=== PATIENT | female | born 1955 | race Caucasian/White ===

== ENCOUNTER → 2023-05-27 07:13 | Outpatient (REF) | payer MEDICARE, OTHER, SELFPAY ==
[2023-05-27 08:34] LABS: Microalbumin, Random Urine < 0.6 mg/dl (0.6-1.7)
[2023-05-27 09:13] LABS: TSH Reflex To Free T4 2.55 uIU/ml (0.47-4.68)
[2023-05-27 09:23] LABS: ALT (SGPT) 25 U/L (0-35); AST (SGOT) 24 U/L (14-36); Albumin 4.3 g/dl (3.5-5.0); Alkaline Phosphatase 54 U/L (38-126); Blood Urea Nitrogen 20 mg/dl (7-17); Calcium 9.7 mg/dl (8.4-10.2); Carbon Dioxide 25 mmol/L (22-30); Chloride 106 mmol/L (98-107); Glucose 110 mg/dl (70-99); HDL Cholesterol 47 mg/dl; LDL Cholesterol, Calculated 89 mg/dl; Potassium 4.2 mmol/L (3.5-5.1); Sodium 136 mmol/L (135-145); Total Bilirubin 0.5 mg/dl (0.2-1.3); Total Cholesterol 187 mg/dl (50-199); Total Protein 7.1 g/dl (6.3-8.2); Triglyceride 257 mg/dl (10-149); Very Low Density Lipoprotein 51 mg/dl (0-30); eGFR > 60.00
[2023-05-27 09:58] LABS: Glycohemoglobin (HgbA1c) 6.3 % (4.0-5.6)
== END ==
LOC: REG 07:13
PROVIDERS: ATTENDING PHYSICIAN Internal Medicine
DX: E03.9 Hypothyroidism, unspecified (principal); E11.9 Type 2 diabetes mellitus without complications
CPT/HCPCS: 36415; 80053; 80061; 82043; 83036; 84443

== ENCOUNTER → 2023-08-31 06:39 | Outpatient (REF) | payer MEDICARE, OTHER, SELFPAY ==
[2023-08-31 07:47] LABS: ALT (SGPT) 15 U/L (0-35); AST (SGOT) 18 U/L (14-36); Albumin 4.1 g/dl (3.5-5.0); Alkaline Phosphatase 53 U/L (38-126); Blood Urea Nitrogen 17 mg/dl (7-17); Calcium 9.9 mg/dl (8.4-10.2); Carbon Dioxide 27 mmol/L (22-30); Chloride 105 mmol/L (98-107); Glucose 92 mg/dl (70-99); HDL Cholesterol 43 mg/dl; LDL Cholesterol, Calculated 64 mg/dl; Potassium 4.6 mmol/L (3.5-5.1); Sodium 141 mmol/L (135-145); Total Bilirubin 0.4 mg/dl (0.2-1.3); Total Cholesterol 147 mg/dl (50-199); Total Protein 6.9 g/dl (6.3-8.2); Triglyceride 201 mg/dl (10-149); Very Low Density Lipoprotein 40 mg/dl (0-30); eGFR > 60.00
[2023-08-31 08:02] LABS: % Basophils 1.4 % (0-2); % Eosinophils 3.7 % (0-6); % Immature Granulocytes 0.4 % (0-0.5); % Monocytes 7.1 % (1.7-9.3); % Neutrophils 57.4 % (42.2-75.2); Absolute Basophils 0.1 10^3/uL (0-0.2); Absolute Eosinophils 0.2 10^3/uL (0-0.7); Absolute Lymphocytes 1.7 10^3/uL (1.2-3.4); Absolute Monocytes 0.4 10^3/uL (0.1-0.6); Absolute Neutrophils 3.2 10^3/uL (1.4-6.5); Hematocrit 37.4 % (37.0-47.0); Hemoglobin 12.6 g/dL (12.0-16.0); Mean Corp Hgb Conc. 33.7 g/dL (33.0-37.0); Mean Corpuscular Hgb 29.6 pg (27.0-31.0); Mean Platelet Volume 9.6 fL (7.4-10.4); Nucleated Red Blood Cells % 0 %; Platelet Count 324 10^3/uL (130-400); Red Blood Cell Count 4.25 10^6/uL (4.20-5.40); Red Cell Dist. Width 12.7 % (11.5-14.5); White Blood Cell Count 5.6 10^3/uL (4.8-10.8)
[2023-08-31 08:16] LABS: TSH Reflex To Free T4 0.58 uIU/ml (0.47-4.68)
[2023-08-31 10:24] LABS: Glycohemoglobin (HgbA1c) 5.9 % (4.0-5.6)
== END ==
LOC: REG 06:39
PROVIDERS: ATTENDING PHYSICIAN Internal Medicine Hematology & Oncology; FAMILY PHYSICIAN Internal Medicine
DX: C50.512 Malignant neoplasm of lower-outer quadrant of left female breast (principal); E55.9 Vitamin D deficiency, unspecified; E11.9 Type 2 diabetes mellitus without complications; E03.9 Hypothyroidism, unspecified; E78.2 Mixed hyperlipidemia
CPT/HCPCS: 36415; 80053; 80061; 83036; 84443; 85025

== ENCOUNTER 2023-10-23 18:26 | Emergency (ER) | payer MEDICARE, OTHER, SELFPAY ==
[2023-10-23 18:32] VITALS: BP 167/96
[2023-10-23 18:51] LABS: % Basophils 0.4 % (0-2); % Eosinophils 1.6 % (0-6); % Immature Granulocytes 0.4 % (0-0.5); % Lymphocytes 11.1 % (20.5-51.1); % Monocytes 6.6 % (1.7-9.3); % Neutrophils 79.9 % (42.2-75.2); Absolute Basophils 0.1 10^3/uL (0-0.2); Absolute Eosinophils 0.2 10^3/uL (0-0.7); Absolute Immature Granulocytes 0.1 10^3/uL (0-0.05); Absolute Lymphocytes 1.6 10^3/uL (1.2-3.4); Absolute Neutrophils 11.5 10^3/uL (1.4-6.5); Hematocrit 40.2 % (37.0-47.0); Hemoglobin 13.2 g/dL (12.0-16.0); Mean Corp Hgb Conc. 32.8 g/dL (33.0-37.0); Mean Corpuscular Hgb 29.1 pg (27.0-31.0); Mean Corpuscular Volume 88.5 fL (81.0-99.0); Mean Platelet Volume 8.4 fL (7.4-10.4); Nucleated Red Blood Cells % 0 %; Platelet Count 450 10^3/uL (130-400); Red Blood Cell Count 4.54 10^6/uL (4.20-5.40); Red Cell Dist. Width 12.9 % (11.5-14.5); Urine Albumin Negative (Neg - Trace); Urine Bilirubin Negative (Negative); Urine Character Clear (Clear); Urine Color Yellow; Urine Glucose Negative (Negative); Urine Ketone Negative (Negative); Urine Leukocyte Negative (Negative); Urine Nitrite Negative (Negative); Urine Occult Blood Negative (Negative); Urine Urobilinogen Negative (Neg - 1+); White Blood Cell Count 14.4 10^3/uL (4.8-10.8)
[2023-10-23 19:04] LABS: ALT (SGPT) 25 U/L (0-35); AST (SGOT) 24 U/L (14-36); Albumin 4.4 g/dl (3.5-5.0); Alkaline Phosphatase 69 U/L (38-126); Blood Urea Nitrogen 10 mg/dl (7-17); Carbon Dioxide 28 mmol/L (22-30); Chloride 98 mmol/L (98-107); Glucose 119 mg/dl (70-99); Lipase 54 U/L (23-300); Sodium 140 mmol/L (135-145); Total Bilirubin 0.5 mg/dl (0.2-1.3); Total Protein 7.7 g/dl (6.3-8.2); eGFR > 60.00
--- NOTE | 2023-10-23 19:31 | ED.GENMED ---
History of Present Illness
General
Chief Complaint: Abdominal Symptoms
Source: patient and spouse
Exam Limitations: none
Time Seen by Provider: 10/23/23 19:16
Nursing documentation reviewed up to this point in time: agreed with
History of Present Illness
History of Present Illness:
67-year-old female with a past medical history of breast cancer in remission, hyperlipidemia, GERD, diabetes, hypothyroidism who presents to the emergency room for evaluation of abdominal pain. Patient reports onset of symptoms last night and have
been constant since that time. She reports pain in the left lower quadrant nonradiating. Worse with palpation. She reports associated flatulence and mild constipation although she did have a bowel movement earlier today. No diarrhea. She has
had nausea and had an episode of vomiting this morning she says. She notes that this afternoon she had a fever to 100.5 �F. Discussed symptoms with her primary who recommended she come to the emergency room to be evaluated. She denies any
dysuria, hematuria, change in frequency. She denies any chest pain or shortness of breath. She denies any other complaints. She says she has not had similar symptoms in the past. She does have prior history of appendectomy and ovarian cyst
resection.
Review of Systems
Review of Systems
All Other Systems: ROS reviewed and negative except as documented in HPI and ROS
Constitutional: Reports fever and chills
Respiratory: Denies trouble breathing
Cardiac: Denies chest pain
ABD/GI: Reports abdominal pain, nausea, vomiting and constipated; Denies diarrhea
: Denies dysuria, frequency or flank pain
Musculoskeletal: Denies neck pain or back pain
Phy Exam
Physical Exam
Physical Exam:
General: Awake, alert; no acute distress
Head: Normocephalic, atraumatic
Eyes: Conjunctiva normal, sclera anicteric
Throat: Airway intact, mucous membranes slightly dry
Neck: Trachea midline
Lungs: Breathing comfortably no distress, no evidence of accessory muscle use, no cyanosis, normal respiratory rate, normal pulse ox
Heart: Mild tachycardia
Abd: Soft, non distended, moderately tender left lower quadrant with voluntary guarding, no palpable masses
Back: No CVA tenderness
Neuro: No gross deficits
Extremities: Warm and well-perfused
Scores
Heart Failure Risk
Heart Failure Risk Score: Not Applicable
Heart Score for Chest Pain Patients
STEMI patient?: Not applicable
Withdrawal Assessment of Alcohol
Withdrawal Assessment Completed?: Not applicable
Course
Orders/Labs/Results
Orders:
Orders
10/23/23 18:43
Complete Blood Count/With Diff Urgent
Comprehensive Metabolic Panel Urgent
Lipase Urgent
Urinalysis Reflex To Culture Urgent
Date Specimen was Collected: 10/23/23
Time Specimen was Collected: 18:35
10/23/23 19:17
CT Abd/pelvis W Iv Cont Urgent
Comment:
Reason For Exam: LLQ abd pain
10/23/23 19:27
Ketorolac [Toradol] 15 mg IV NOW STA
10/23/23 20:28
0.9% Sodium Chloride 500 ml [Nss] 500 ml IV BOLUS
10/23/23 21:56
MetroNIDAZOLE [Flagyl] 500 mg PO NOW STA
10/23/23 21:57
Ciprofloxacin HCl [Cipro] 500 mg PO ONCE ONE
Abnormal Lab Results
10/23/23
18:43
WBC 14.4 H 10^3/uL
(4.8-10.8)
MCHC 32.8 L g/dL
(33.0-37.0)
Plt Count 450 H 10^3/uL
(130-400)
Abs Immat Gran (auto) 0.1 H 10^3/uL
(0-0.05)
Absolute Neuts (auto) 11.5 H 10^3/uL
(1.4-6.5)
Absolute Monos (auto) 1.0 H 10^3/uL
(0.1-0.6)
Neutrophils % 79.9 H %
(42.2-75.2)
Lymphocytes % 11.1 L %
(20.5-51.1)
Glucose 119 H mg/dl
(70-99)
10/23/23 18:43
10/23/23 18:43
Vital Signs
Initial and Last Documented VS:
Initial Vital Signs
Temp Pulse Resp BP Pulse Ox
37.7 C 106 20 167/96 96
10/23/23 18:32 10/23/23 18:32 10/23/23 18:32 10/23/23 18:32 10/23/23 18:32
Last Documented Vital Signs
Temp Pulse Resp BP Pulse Ox
37.7 C 106 20 116/59 95
10/23/23 18:32 10/23/23 18:32 10/23/23 18:32 10/23/23 20:00 10/23/23 20:00
MDM/Problems Addressed
Differential Diagnosis Includes:
Diverticulitis, colitis, constipation
MDM/Problems Addressed:
67-year-old female presents for evaluation of abdominal pain, fever, nausea/vomiting, constipation and flatulence. Symptoms started last night and have been constant. Tachycardic, borderline fever here (had fever this afternoon and was treated
with Tylenol). Physical exam as above. Labs were sent in triage including a CBC which shows a leukocytosis to 14.4. Her CMP shows no clinically significant abnormalities. Urinalysis is negative for infection. Will send for a CT of the abdomen
pelvis. Provide some fluids. Treat with Toradol for pain. Will monitor closely reassess after the above.
Patient did note some improvement with Toradol. CT initially read by me does appear to show acute diverticulitis; also noted left pleural effusion. Radiology read pending. Continue to monitor.
CT reviewed�shows acute diverticulitis uncomplicated. She does have mild pleural effusion as well. Patient notes that she just got over a bout of COVID which certainly could be caused�recommended follow-up with PCP for further evaluation as
needed. Regarding her acute diverticulitis�her pain is well-controlled after dose of Toradol here. Heart rate improved, no fever here�no signs of sepsis at this point and likely reasonable for trial of outpatient antibiotics, nevertheless given
her age I did offer admission for short course of IV antibiotics prior to discharge home�patient prefers discharge on oral antibiotics. We did speak in detail about return precautions and follow-up plan. We spoke about bland diet and low fiber
diet during this acute bout. All questions answered.
Acute Exacerbation and/or Progression of Chronic Illness:
Acutely hypertensive resolved with no intervention�continue to monitor but no additional antihypertensive indicated at present
Acute Exacerbation and/or Progression of Chronic Illness: HTN
*Radiology
Radiology exam reviewed: radiology read reviewed
*Pulse Oximetry
Patient hypoxic: no
*Critical Care Note
Total Time (30-74mins, 75-104mins- exclusive of procedures): Not Applicable
Data Reviewed
Source: patient and spouse
Patient Management
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
Escalation/DeEscalation of care consider admission/obs:
Offered admission�shared decision making: discharge on oral antibiotics
ED Attending Note
-
Portions of this chart may have been created with voice recognition software.� Occasional wrong word or��sound alike� substitutions may have occurred due to the inherent limitations of voice recognition software.
Discharge Plan
Departure
Patient Disposition: Home (Routine Discharge)
Date of Disposition: 10/23/23
Time of Disposition: 21:57
Patient with high blood pressure during this ER visit?: Yes
Discharge Problem:
Acute diverticulitis, Pleural effusion
Instructions: Diverticulitis (DC), [place] Diet
Prescriptions:
New
ciprofloxacin HCl 500 mg tablet
500 mg PO BID 10 Days Qty: 20 0RF
metronidazole 500 mg tablet
500 mg PO TID 10 Days Qty: 30 0RF
No Action
levothyroxine 100 MCG tablet
100 mcg PO DAILY
metformin 500 MG tablet extended release 24 hr
500 mg PO .AM
Patient Comments:
will take 1000 mg am and 500 mg PM on chemo days to control glucose from Decadron effect.
biotin 1,000 MCG tablet,chewable
1,000 mcg PO DAILY
acetaminophen [Tylenol Extra Strength] 500 MG tablet
500 mg PO Q4HPRN PRN (Reason: pain)
L. qgtabftgz-L-wzzi cit-yeast [Culturelle Adv Immune Defense] 1 EACH capsule
1 cap PO DAILY
rosuvastatin 10 MG tablet
10 mg PO QPM
cholecalciferol (vitamin D3) 2,000 UNITS tablet
2,000 unit PO DAILY
Referrals:
Alba Garner MD [Family Provider] - Follow up in 2-3 days
Activity Restrictions/Additional Instructions:
Thank you for visiting the Emergency Department at [facility].
1. Please schedule a follow up appointment as directed. Call first thing tomorrow morning to make an appointment.
2. If indicated, please take your medications as instructed and indicated on discharge paperwork.
3. If any of your symptoms do not improve, or persist, or become more severe within 6-12 hours, please return to the emergency department for further care.
4. Please return to the emergency department if you develop a headache, neck pain/stiffness, fever greater than 100.4F, chest pain, shortness of breath, persistent nausea, vomiting, slurred speech, difficulty walking, numbness/tingling, weakness,
signs of infection or any other symptoms that are worrisome to you.
Please call [phone] if you have any questions.
Interventions
Interventions:
*Risk Screen - Suicide Last Done: 10/23/23 19:34
*General Assessment Last Done: 10/23/23 19:34
*Neglect/Abuse Screening Last Done: 10/23/23 19:34
*ED COVID-19 Vaccine History Last Done: 10/23/23 19:34
KB-Cosudd-Yutstqvloh Assessment Last Done: 10/23/23 19:42
Discharge Date and Time
Print Language: UZBEK
[2023-10-23 19:34] VITALS: BP 130/67
[2023-10-23] MEDS: TORADOL 15 MG IV (19:35)
[2023-10-23 20:00] VITALS: BP 116/59
[2023-10-23] MEDS: NSS 500 IV (20:42)
[2023-10-23] MEDS: FLAGYL 500 MG PO (22:09)
[2023-10-23] MEDS: CIPRO 500 MG PO (22:09)
== END 2023-10-23 22:22 | disposition home or self-care (01) ==
LOC: EMR 18:26
PROVIDERS: Emergency Medicine; EMERGENCY PHYSICIAN Emergency Medicine; FAMILY PHYSICIAN Internal Medicine
DX: J90 Pleural effusion, not elsewhere classified (principal); K57.32 Diverticulitis of large intestine without perforation or abscess without bleeding; R03.0 Elevated blood-pressure reading, without diagnosis of hypertension
CPT/HCPCS: 99285; 96374; 96361; 74177; 80053; 81003; 83690; 85025; Q9967

== ENCOUNTER → 2023-12-22 07:17 | Outpatient (REF) | payer MEDICARE, OTHER, SELFPAY ==
[2023-12-22 08:50] LABS: ALT (SGPT) 23 U/L (0-35); AST (SGOT) 23 U/L (14-36); Albumin 4.2 g/dl (3.5-5.0); Alkaline Phosphatase 45 U/L (38-126); Blood Urea Nitrogen 16 mg/dl (7-17); Calcium 10.1 mg/dl (8.4-10.2); Carbon Dioxide 27 mmol/L (22-30); Chloride 102 mmol/L (98-107); Glucose 95 mg/dl (70-99); HDL Cholesterol 61 mg/dl; LDL Cholesterol, Calculated 89 mg/dl; Potassium 4.5 mmol/L (3.5-5.1); Sodium 141 mmol/L (135-145); Total Bilirubin 0.2 mg/dl (0.2-1.3); Total Cholesterol 193 mg/dl (50-199); Total Protein 7.2 g/dl (6.3-8.2); Triglyceride 215 mg/dl (10-149); Very Low Density Lipoprotein 43 mg/dl (0-30); eGFR > 60.00
[2023-12-22 10:19] LABS: Glycohemoglobin (HgbA1c) 5.8 % (4.0-5.6)
== END ==
LOC: WDC 07:17
PROVIDERS: ATTENDING PHYSICIAN Internal Medicine
DX: E11.9 Type 2 diabetes mellitus without complications (principal); E78.2 Mixed hyperlipidemia; E03.9 Hypothyroidism, unspecified; G47.33 Obstructive sleep apnea (adult) (pediatric); Z85.3 Personal history of malignant neoplasm of breast; Z12.31 Encounter for screening mammogram for malignant neoplasm of breast
CPT/HCPCS: 36415; 77063; 77067; 80053; 80061; 83036

== ENCOUNTER → 2024-04-05 07:10 | Outpatient (REF) | payer MEDICARE, OTHER, SELFPAY ==
[2024-04-05 08:10] LABS: % Basophils 1.7 % (0-2); % Eosinophils 7.2 % (0-6); % Immature Granulocytes 0.9 % (0-0.5); % Lymphocytes 28.6 % (20.5-51.1); % Monocytes 7.2 % (1.7-9.3); % Neutrophils 54.4 % (42.2-75.2); Absolute Basophils 0.1 10^3/uL (0-0.2); Absolute Eosinophils 0.4 10^3/uL (0-0.7); Absolute Immature Granulocytes 0.1 10^3/uL (0-0.05); Absolute Lymphocytes 1.7 10^3/uL (1.2-3.4); Absolute Monocytes 0.4 10^3/uL (0.1-0.6); Absolute Neutrophils 3.2 10^3/uL (1.4-6.5); Hematocrit 41.7 % (37.0-47.0); Hemoglobin 13.6 g/dL (12.0-16.0); Mean Corp Hgb Conc. 32.6 g/dL (33.0-37.0); Mean Corpuscular Hgb 29.2 pg (27.0-31.0); Mean Corpuscular Volume 89.7 fL (81.0-99.0); Mean Platelet Volume 9.1 fL (7.4-10.4); Nucleated Red Blood Cells % 0 %; Platelet Count 341 10^3/uL (130-400); Red Blood Cell Count 4.65 10^6/uL (4.20-5.40); Red Cell Dist. Width 13.6 % (11.5-14.5); White Blood Cell Count 5.8 10^3/uL (4.8-10.8)
[2024-04-05 08:29] LABS: ALT (SGPT) 27 U/L (0-35); AST (SGOT) 23 U/L (14-36); Albumin 4.6 g/dl (3.5-5.0); Alkaline Phosphatase 52 U/L (38-126); Blood Urea Nitrogen 15 mg/dl (7-17); Calcium 9.5 mg/dl (8.4-10.2); Carbon Dioxide 28 mmol/L (22-30); Chloride 103 mmol/L (98-107); Glucose 92 mg/dl (70-99); HDL Cholesterol 62 mg/dl; LDL Cholesterol, Calculated 94 mg/dl; Potassium 4.5 mmol/L (3.5-5.1); Sodium 140 mmol/L (135-145); Total Bilirubin 0.8 mg/dl (0.2-1.3); Total Cholesterol 191 mg/dl (50-199); Total Protein 7.3 g/dl (6.3-8.2); Triglyceride 177 mg/dl (10-149); Very Low Density Lipoprotein 35 mg/dl (0-30); eGFR > 60.00
[2024-04-05 10:42] LABS: TSH Reflex To Free T4 3.25 uIU/ml (0.47-4.68)
[2024-04-05 11:16] LABS: Glycohemoglobin (HgbA1c) 5.9 % (4.0-5.6)
== END ==
LOC: REG 07:10
PROVIDERS: ATTENDING PHYSICIAN Internal Medicine
DX: E11.9 Type 2 diabetes mellitus without complications (principal); E03.9 Hypothyroidism, unspecified; E78.2 Mixed hyperlipidemia
CPT/HCPCS: 36415; 80053; 80061; 83036; 84443; 85025

== ENCOUNTER 2024-05-03 06:16 | Day surgery (SDC) | payer MEDICARE, OTHER, SELFPAY ==
[2024-05-03 07:34] LABS: Glucose - Point of Care 83 mg/dl (70-99)
== END 2024-05-03 09:23 | disposition home or self-care (01) ==
LOC: GI 06:16
PROVIDERS: ATTENDING PHYSICIAN Internal Medicine Gastroenterology
DX: Z12.11 Encounter for screening for malignant neoplasm of colon (principal); K57.30 Diverticulosis of large intestine without perforation or abscess without bleeding; K64.8 Other hemorrhoids; K57.32 Diverticulitis of large intestine without perforation or abscess without bleeding; D12.2 Benign neoplasm of ascending colon; C20 Malignant neoplasm of rectum
CPT/HCPCS: 45385; 45380; 88305; 82962; 88341; 88342

== ENCOUNTER → 2024-05-16 17:28 | Outpatient (REF) | payer MEDICARE, OTHER, SELFPAY | LOC: MRI 3T 17:28 | PROVIDERS: ATTENDING PHYSICIAN Surgery; FAMILY PHYSICIAN Internal Medicine | DX: C21.1 Malignant neoplasm of anal canal (principal) | CPT/HCPCS: 72197; A9575 ==

== ENCOUNTER → 2024-05-17 08:21 | Outpatient (REF) | payer MEDICARE, OTHER, SELFPAY | LOC: RAD 08:21 | PROVIDERS: ATTENDING PHYSICIAN Surgery; FAMILY PHYSICIAN Internal Medicine | DX: C21.1 Malignant neoplasm of anal canal (principal) | CPT/HCPCS: 71260; 74160; Q9967 ==

== ENCOUNTER → 2024-05-29 06:46 | Outpatient (REF) | payer MEDICARE, OTHER, SELFPAY | LOC: RSP 06:46 | PROVIDERS: ATTENDING PHYSICIAN Internal Medicine Hematology & Oncology; FAMILY PHYSICIAN Internal Medicine | DX: C21.0 Malignant neoplasm of anus, unspecified (principal); R06.02 Shortness of breath | CPT/HCPCS: 94727; 94729; 94010 ==

== ENCOUNTER → 2024-06-04 13:43 | Outpatient (REF) | payer MEDICARE, OTHER, SELFPAY ==
[2024-06-04 14:57] LABS: % Basophils 1.5 % (0-2); % Eosinophils 4.7 % (0-6); % Immature Granulocytes 0.6 % (0-0.5); % Lymphocytes 26.2 % (20.5-51.1); % Monocytes 6.3 % (1.7-9.3); % Neutrophils 60.7 % (42.2-75.2); Absolute Basophils 0.1 10^3/uL (0-0.2); Absolute Eosinophils 0.4 10^3/uL (0-0.7); Absolute Immature Granulocytes 0.1 10^3/uL (0-0.05); Absolute Lymphocytes 2.2 10^3/uL (1.2-3.4); Absolute Monocytes 0.5 10^3/uL (0.1-0.6); Hematocrit 41.6 % (37.0-47.0); Hemoglobin 13.8 g/dL (12.0-16.0); Mean Corp Hgb Conc. 33.2 g/dL (33.0-37.0); Mean Corpuscular Hgb 30.1 pg (27.0-31.0); Mean Corpuscular Volume 90.8 fL (81.0-99.0); Mean Platelet Volume 9.7 fL (7.4-10.4); Nucleated Red Blood Cells % 0 %; Platelet Count 327 10^3/uL (130-400); Red Blood Cell Count 4.58 10^6/uL (4.20-5.40); White Blood Cell Count 8.2 10^3/uL (4.8-10.8)
[2024-06-04 15:19] LABS: ALT (SGPT) 24 U/L (0-35); AST (SGOT) 22 U/L (14-36); Albumin 4.6 g/dl (3.5-5.0); Alkaline Phosphatase 72 U/L (38-126); Blood Urea Nitrogen 16 mg/dl (7-17); Calcium 10.3 mg/dl (8.4-10.2); Carbon Dioxide 28 mmol/L (22-30); Chloride 104 mmol/L (98-107); Glucose 125 mg/dl (70-99); Potassium 4.3 mmol/L (3.5-5.1); Sodium 142 mmol/L (135-145); Total Bilirubin 0.5 mg/dl (0.2-1.3); Total Protein 7.3 g/dl (6.3-8.2); eGFR > 60.00
== END ==
LOC: REG 13:43
PROVIDERS: ATTENDING PHYSICIAN Internal Medicine Hematology & Oncology
DX: C50.512 Malignant neoplasm of lower-outer quadrant of left female breast (principal); E55.9 Vitamin D deficiency, unspecified; C21.0 Malignant neoplasm of anus, unspecified
CPT/HCPCS: 36415; 80053; 85025

== ENCOUNTER → 2024-06-05 10:15 | Outpatient (REF) | payer MEDICARE, OTHER, SELFPAY | LOC: RCS 10:15 | PROVIDERS: ATTENDING PHYSICIAN Internal Medicine Cardiovascular Disease; FAMILY PHYSICIAN Internal Medicine | DX: R01.1 Cardiac murmur, unspecified (principal); Z01.810 Encounter for preprocedural cardiovascular examination | CPT/HCPCS: 93306 ==

== ENCOUNTER → 2024-06-08 08:15 | Outpatient (REF) | payer MEDICARE, OTHER, SELFPAY ==
[2024-06-08 09:05] VITALS: BP 134/65; BP_SYST 75; BMI 32.0
[2024-06-08] MEDS: ANCEF 10 IV (09:26)
[2024-06-08 10:46] VITALS: BP 137/63
== END ==
LOC: RADI 08:15
PROVIDERS: ATTENDING PHYSICIAN Internal Medicine Hematology & Oncology; FAMILY PHYSICIAN Internal Medicine
DX: C21.0 Malignant neoplasm of anus, unspecified (principal)
CPT/HCPCS: 36561; 76937; 77001; 99152; 99153; C1788

== ENCOUNTER → 2024-06-19 09:44 | Outpatient (REF) | payer MEDICARE, OTHER, SELFPAY ==
[2024-06-19 11:05] LABS: % Basophils 1.1 % (0-2); % Monocytes 1.1 % (1.7-9.3); % Neutrophils 67.8 % (42.2-75.2); Absolute Eosinophils 0.1 10^3/uL (0-0.7); Absolute Immature Granulocytes 0.1 10^3/uL (0-0.05); Absolute Lymphocytes 0.7 10^3/uL (1.2-3.4); Absolute Neutrophils 1.8 10^3/uL (1.4-6.5); Hemoglobin 12.4 g/dL (12.0-16.0); Mean Corp Hgb Conc. 33.5 g/dL (33.0-37.0); Mean Corpuscular Volume 89.6 fL (81.0-99.0); Mean Platelet Volume 9.3 fL (7.4-10.4); Nucleated Red Blood Cells % 0 %; Platelet Count 193 10^3/uL (130-400); Red Blood Cell Count 4.13 10^6/uL (4.20-5.40); Red Cell Dist. Width 12.3 % (11.5-14.5); White Blood Cell Count 2.7 10^3/uL (4.8-10.8)
[2024-06-19 11:36] LABS: ALT (SGPT) 14 U/L (0-35); AST (SGOT) 16 U/L (14-36); Albumin 4.3 g/dl (3.5-5.0); Alkaline Phosphatase 50 U/L (38-126); Blood Urea Nitrogen 12 mg/dl (7-17); Calcium 9.1 mg/dl (8.4-10.2); Carbon Dioxide 27 mmol/L (22-30); Chloride 103 mmol/L (98-107); Glucose 92 mg/dl (70-99); Sodium 141 mmol/L (135-145); Total Bilirubin 0.5 mg/dl (0.2-1.3); eGFR > 60.00
== END ==
LOC: REG 09:44
PROVIDERS: ATTENDING PHYSICIAN Internal Medicine Hematology & Oncology; FAMILY PHYSICIAN Internal Medicine
DX: C50.512 Malignant neoplasm of lower-outer quadrant of left female breast (principal); E55.9 Vitamin D deficiency, unspecified; C21.0 Malignant neoplasm of anus, unspecified
CPT/HCPCS: 36415; 80053; 85025

== ENCOUNTER → 2024-06-25 13:05 | Outpatient (REF) | payer MEDICARE, OTHER, SELFPAY ==
[2024-06-25 15:39] LABS: % Basophils 1.1 % (0-2); % Eosinophils 5.3 % (0-6); % Lymphocytes 55.3 % (20.5-51.1); % Neutrophils 21.3 % (42.2-75.2); Absolute Eosinophils 0.1 10^3/uL (0-0.7); Absolute Lymphocytes 0.5 10^3/uL (1.2-3.4); Absolute Monocytes 0.2 10^3/uL (0.1-0.6); Absolute Neutrophils 0.2 10^3/uL (1.4-6.5); Hematocrit 33.7 % (37.0-47.0); Hemoglobin 11.3 g/dL (12.0-16.0); Mean Corp Hgb Conc. 33.5 g/dL (33.0-37.0); Mean Corpuscular Hgb 30.1 pg (27.0-31.0); Mean Corpuscular Volume 89.6 fL (81.0-99.0); Mean Platelet Volume 8.9 fL (7.4-10.4); Nucleated Red Blood Cells % 0 %; Platelet Count 89 10^3/uL (130-400); Red Blood Cell Count 3.76 10^6/uL (4.20-5.40); Red Cell Dist. Width 12.3 % (11.5-14.5); White Blood Cell Count 0.9 10^3/uL (4.8-10.8)
[2024-06-25 15:49] LABS: ALT (SGPT) 29 U/L (0-35); AST (SGOT) 22 U/L (14-36); Albumin 4.1 g/dl (3.5-5.0); Alkaline Phosphatase 56 U/L (38-126); Blood Urea Nitrogen 15 mg/dl (7-17); Calcium 9.1 mg/dl (8.4-10.2); Carbon Dioxide 23 mmol/L (22-30); Chloride 111 mmol/L (98-107); Glucose 121 mg/dl (70-99); Potassium 3.7 mmol/L (3.5-5.1); Sodium 140 mmol/L (135-145); Total Bilirubin 0.3 mg/dl (0.2-1.3); Total Protein 6.6 g/dl (6.3-8.2); eGFR > 60.00
== END ==
LOC: REG 13:05
PROVIDERS: ATTENDING PHYSICIAN Internal Medicine Hematology & Oncology
DX: C50.512 Malignant neoplasm of lower-outer quadrant of left female breast (principal); E55.9 Vitamin D deficiency, unspecified; C21.0 Malignant neoplasm of anus, unspecified
CPT/HCPCS: 36415; 80053; 85025

== ENCOUNTER → 2024-07-02 09:11 | Outpatient (REF) | payer MEDICARE, OTHER, SELFPAY ==
[2024-07-02 10:57] LABS: Hematocrit 32.8 % (37.0-47.0); Hemoglobin 10.9 g/dL (12.0-16.0); Mean Corp Hgb Conc. 33.2 g/dL (33.0-37.0); Mean Corpuscular Hgb 30.1 pg (27.0-31.0); Mean Corpuscular Volume 90.6 fL (81.0-99.0); Mean Platelet Volume 8.5 fL (7.4-10.4); Platelet Count 284 10^3/uL (130-400); Red Blood Cell Count 3.62 10^6/uL (4.20-5.40); Red Cell Dist. Width 13.1 % (11.5-14.5); White Blood Cell Count 3.2 10^3/uL (4.8-10.8)
[2024-07-02 11:18] LABS: ALT (SGPT) 28 U/L (0-35); AST (SGOT) 21 U/L (14-36); Albumin 3.8 g/dl (3.5-5.0); Alkaline Phosphatase 54 U/L (38-126); Blood Urea Nitrogen 12 mg/dl (7-17); Calcium 9.5 mg/dl (8.4-10.2); Carbon Dioxide 27 mmol/L (22-30); Chloride 108 mmol/L (98-107); Glucose 126 mg/dl (70-99); Potassium 4.4 mmol/L (3.5-5.1); Sodium 142 mmol/L (135-145); Total Bilirubin 0.2 mg/dl (0.2-1.3); Total Protein 6.6 g/dl (6.3-8.2); eGFR > 60.00
[2024-07-02 12:40] LABS: % Basophils 1.2 % (0-2); % Eosinophils 0.9 % (0-6); % Monocytes 11.2 % (1.7-9.3); % Neutrophils 62.7 % (42.2-75.2); Absolute Immature Granulocytes 0.3 10^3/uL (0-0.05); Absolute Lymphocytes 0.5 10^3/uL (1.2-3.4); Absolute Monocytes 0.4 10^3/uL (0.1-0.6); Nucleated Red Blood Cells % 0 %
== END ==
LOC: REG 09:11
PROVIDERS: ATTENDING PHYSICIAN Internal Medicine Hematology & Oncology; FAMILY PHYSICIAN Internal Medicine
DX: C50.512 Malignant neoplasm of lower-outer quadrant of left female breast (principal); E55.9 Vitamin D deficiency, unspecified; C21.0 Malignant neoplasm of anus, unspecified
CPT/HCPCS: 36415; 80053; 85025

== ENCOUNTER → 2024-07-10 10:01 | Outpatient (REF) | payer MEDICARE, OTHER, SELFPAY ==
[2024-07-10 10:52] LABS: % Eosinophils 4.8 % (0-6); % Immature Granulocytes 1.7 % (0-0.5); % Lymphocytes 7.9 % (20.5-51.1); % Monocytes 9.4 % (1.7-9.3); % Neutrophils 75.2 % (42.2-75.2); Absolute Basophils 0.1 10^3/uL (0-0.2); Absolute Eosinophils 0.3 10^3/uL (0-0.7); Absolute Immature Granulocytes 0.1 10^3/uL (0-0.05); Absolute Lymphocytes 0.4 10^3/uL (1.2-3.4); Absolute Monocytes 0.5 10^3/uL (0.1-0.6); Absolute Neutrophils 3.9 10^3/uL (1.4-6.5); Mean Corp Hgb Conc. 33.3 g/dL (33.0-37.0); Mean Corpuscular Hgb 29.9 pg (27.0-31.0); Mean Corpuscular Volume 89.8 fL (81.0-99.0); Mean Platelet Volume 8.6 fL (7.4-10.4); Nucleated Red Blood Cells % 0 %; Platelet Count 325 10^3/uL (130-400); Red Blood Cell Count 4.01 10^6/uL (4.20-5.40); White Blood Cell Count 5.2 10^3/uL (4.8-10.8)
[2024-07-10 11:29] LABS: ALT (SGPT) 32 U/L (0-35); AST (SGOT) 24 U/L (14-36); Albumin 4.3 g/dl (3.5-5.0); Alkaline Phosphatase 56 U/L (38-126); Blood Urea Nitrogen 14 mg/dl (7-17); Calcium 9.8 mg/dl (8.4-10.2); Carbon Dioxide 27 mmol/L (22-30); Chloride 107 mmol/L (98-107); Glucose 100 mg/dl (70-99); Potassium 4.6 mmol/L (3.5-5.1); Sodium 142 mmol/L (135-145); Total Bilirubin 0.4 mg/dl (0.2-1.3); Total Protein 7.3 g/dl (6.3-8.2); eGFR > 60.00
== END ==
LOC: REG 10:01
PROVIDERS: ATTENDING PHYSICIAN Internal Medicine Hematology & Oncology; FAMILY PHYSICIAN Internal Medicine
DX: C50.512 Malignant neoplasm of lower-outer quadrant of left female breast (principal); E55.9 Vitamin D deficiency, unspecified; C21.0 Malignant neoplasm of anus, unspecified
CPT/HCPCS: 36415; 80053; 85025

== ENCOUNTER → 2024-07-24 10:42 | Outpatient (REF) | payer MEDICARE, OTHER, SELFPAY ==
[2024-07-24 11:39] LABS: Hematocrit 33.8 % (37.0-47.0); Hemoglobin 11.3 g/dL (12.0-16.0); Mean Corp Hgb Conc. 33.4 g/dL (33.0-37.0); Mean Corpuscular Hgb 30.5 pg (27.0-31.0); Mean Corpuscular Volume 91.1 fL (81.0-99.0); Mean Platelet Volume 9.5 fL (7.4-10.4); Platelet Count 100 10^3/uL (130-400); Red Blood Cell Count 3.71 10^6/uL (4.20-5.40); Red Cell Dist. Width 14.6 % (11.5-14.5); White Blood Cell Count 1.7 10^3/uL (4.8-10.8)
[2024-07-24 12:02] LABS: ALT (SGPT) 14 U/L (0-35); AST (SGOT) 14 U/L (14-36); Albumin 4.3 g/dl (3.5-5.0); Alkaline Phosphatase 55 U/L (38-126); Blood Urea Nitrogen 16 mg/dl (7-17); Calcium 9.8 mg/dl (8.4-10.2); Carbon Dioxide 26 mmol/L (22-30); Chloride 106 mmol/L (98-107); Glucose 95 mg/dl (70-99); Potassium 3.8 mmol/L (3.5-5.1); Sodium 141 mmol/L (135-145); Total Bilirubin 0.6 mg/dl (0.2-1.3); Total Protein 7.2 g/dl (6.3-8.2); eGFR > 60.00
[2024-07-24 12:21] LABS: Absolute Neutrophils -Man Diff 0.8 10^3/uL (1.4-6.5); Band Neutrophils 5 % (0-3); Eosinophils 24 % (0-6); Lymphocytes 16 % (20-51); Monocytes 8 % (2-9); Normal RBC Morphology No; Nucleated Red Blood Cells 1 (-); Platelets Checked Yes; Segmented Neutrophils 47 % (42-75)
[2024-07-24 12:22] LABS: Anisocytosis 1+; Polychromasia 1+; Spherocytes 1+; Total Cells Counted 100
== END ==
LOC: REG 10:42
PROVIDERS: ATTENDING PHYSICIAN Internal Medicine Hematology & Oncology; FAMILY PHYSICIAN Internal Medicine
DX: C50.512 Malignant neoplasm of lower-outer quadrant of left female breast (principal); E55.9 Vitamin D deficiency, unspecified; C21.0 Malignant neoplasm of anus, unspecified
CPT/HCPCS: 36415; 80053; 85025

== ENCOUNTER 2024-07-25 23:58 | Inpatient (IN) | payer MEDICARE, OTHER, SELFPAY ==
[2024-07-25 19:47] VITALS: BP 133/80
[2024-07-25 20:04] LABS: Urine Albumin 3+ (Neg - Trace); Urine Bilirubin Negative (Negative); Urine Character Slightly Cloudy (Clear); Urine Color Yellow; Urine Glucose Negative (Negative); Urine Ketone Negative (Negative); Urine Leukocyte 3+ (Negative); Urine Nitrite Negative (Negative); Urine Occult Blood 3+ (Negative); Urine Specific Gravity 1.015 (<1.030); Urine Urobilinogen Negative (Neg - 1+)
[2024-07-25 20:13] LABS: Urine Bacteria Many (Negative); Urine Red Blood Cell 26-30 /HPF (0-2)
[2024-07-25 20:14] LABS: Urine White Cell >100 /HPF (0-5)
[2024-07-25 21:02] VITALS: BP 97/63
[2024-07-25 21:05] VITALS: BP 108/64
[2024-07-25 21:22] VITALS: BMI 32.4
[2024-07-25 22:06] VITALS: BP 111/61
[2024-07-25 22:22] LABS: Lactic Acid 1.6 mmol/L (0.7-2.0)
[2024-07-25 22:23] LABS: ALT (SGPT) 17 U/L (0-35); AST (SGOT) 16 U/L (14-36); Alkaline Phosphatase 48 U/L (38-126); Blood Urea Nitrogen 15 mg/dl (7-17); Calcium 9.3 mg/dl (8.4-10.2); Carbon Dioxide 22 mmol/L (22-30); Chloride 107 mmol/L (98-107); Estimated Creatinine Clearance 76 ml/min; Glucose 158 mg/dl (70-99); Potassium 3.5 mmol/L (3.5-5.1); Sodium 140 mmol/L (135-145); Total Bilirubin 0.4 mg/dl (0.2-1.3); Total Protein 6.8 g/dl (6.3-8.2); eGFR > 60.00
--- NOTE | 2024-07-25 22:45 | ED.GENMED ---
History of Present Illness
General
Chief Complaint: Fever
Source: patient and spouse
Exam Limitations: none
Time Seen by Provider: 07/25/24 22:03
Nursing documentation reviewed up to this point in time: agreed with
History of Present Illness
History of Present Illness:
This is a 68-year-old woman with history of oap-[id number]-[id number] diabetes, hyperlipidemia, hypothyroidism, history of left breast cancer 2018 status postlumpectomy, XRT. More recently was diagnosed with anal cancer May of this year after
undergoing routine surveillance colonoscopy. Following with [facility] and completed a 28-day course of local/pelvic XRT as well as 2 rounds of chemotherapy consisting of 4-day course of 5-FU along with minimizing the first 4 days
of XRT and then the last 4 days of XRT. Chemotherapy and XRT completed July 19.
She presents tonight with complaints of acute onset of fever with Tmax of 103 �F early evening. She took a dose of Tylenol at 5:30 PM. She admits to generalized aches and chills with onset of fever. No dizziness nor lightheadedness, no cough no
shortness of breath. No dysuria and no urgency nor hematuria. She denies back nor flank pain. No headache. No sore throat, no nasal congestion.
She does note mildly dry mouth with chemotherapy but no mouth ulcerations nor exudate and dry mouth has markedly improved recently.
She does note some chronic nonbloody loose stools with onset of radiation and chemotherapy as well as some mild rectal/pelvic discomfort that has been ongoing over the past month, all unchanged.
She takes Imodium as needed for diarrhea.
CBC performed yesterday revealed neutropenia with white blood cell count of 1.7, absolute neutrophil count of 884.
Past History
Past History
ED Past Medical History: Cancer (Left breast cancer 2018; squamous cell anal cancer.), NIDDM and Hypothyroidism
ED Past Surgical History: Gynecological (Left breast lumpectomy-local radiation.) and Orthopedic (Bilateral knee replacements)
Social History
Tobacco: Non-smoker
Alcohol: None
Personal:
Living: with family
Family History
Family History: Other (Noncontributory)
Phy Exam
Physical Exam
Physical Exam:
GENERAL: 68-year-old woman appears her stated age, bright and alert, pleasant, appears in no acute distress. is accompanying.
EYE: pupils equal. anicteric
NECK: Supple, nontender, no meningismus, no significant adenopathy.
ENT: posterior pharynx is clear, oral mucosa is moist. TM clear b/l, nares patent.
CARDIAC: Regular rate and rhythm. no murmur. Port-A-Cath right upper chest wall. Site is clean and dry.
LUNGS: Clear breath sounds bilaterally, no acute respiratory distress, no wheezes/rales/rhonchi
ABDOMEN: Soft, nondistended, without focal tenderness, no r/g, no cvat. normoactive BS.
NEUROLOGICAL: Alert and oriented x3, no focal neuro deficits.
SKIN: Warm and dry, normal color, skin intact. No rash.
MUSCULOSKELETAL: No C/C/E. peripheral pulses are full and equal b/l. No palpable tenderness.
PSYCH: Normal and appropriate interaction.
Course
Orders/Labs/Results
Orders:
Orders
07/25/24 19:51
Electrocardiogram (*1) Urgent
Reason for Study: Other
Other Reason for Exam: Possible Sepsis
EKG- Treatment ONCE
07/25/24 19:57
Urinalysis Reflex To Culture Urgent
Date Specimen was Collected: 07/25/24
Time Specimen was Collected: 19:51
Urine Microscopic Reflex Cult Urgent
Urine Culture Urgent
MENDY Source: U
Specimen Description:
Date Specimen was Collected: 07/25/24
Time Specimen was Collected: 19:51
07/25/24 22:02
CMP [Comprehensive Metabolic Panel] Urgent
Complete Blood Count/With Diff Urgent
Lactate Level [Lactic Acid] Urgent
Magnesium Urgent
Comment: ADD ON
Manual Differential Urgent
07/25/24 22:26
Blood Culture Q30M
MENDY Source: Blood/Venous
Specimen Description:
Blood Culture Q30M
MENDY Source: Blood/Venous
Specimen Description:
07/25/24 22:31
0.9% Sodium Chloride 1000 ml [Nss] 1,600 ml IV NOW STA
Cefepime HCl [Maxipime] 2,000 mg IV NOW STA
MetroNIDAZOLE 500 MG/100 ML [Flagyl 500 mg] 100 ml IV NOW
07/25/24 22:35
Acetaminophen [Tylenol] 1,000 mg PO NOW STA
07/25/24 22:47
Sterile Water [Sterile Water For Injection] 10 ml .ROUTE .STK-MED ONE
07/25/24 23:00
Flush (0.9% Sodium Chloride) [Flush (Nss)] See Dose Instructions IV PER PROTOCOL
07/25/24 23:09
CR Chest - 2 Views Stat
Comment:
Reason For Exam: fever, rule out pna
07/25/24 23:14
Admit/Transfer Patient As Directed
Co-Sign Provider:
Level of Care: Inpatient admission
Assign to:: Telemetry
Physician / Group: Donna
Diagnosis: febrile neutropenia
Reason for Telemetry: Other
Other Reason for Telemetry: QT prolonged
Date to Stop Telemetry: 07/27/24
Time to Stop Telemetry: 11:00
Reason for Hospitalization: neutropenic fever
Expected length of stay greater than two midnights?: Yes
ELOS- Estimated Length of Stay in days: 2
I certify the patient meets the requirements for IP care: Yes
PRN Pain Medication Management As Directed
May give lesser potent ordered pain med per pt: Yes
preference::
Protocol:: Medication orders for pain may be administered in a
manner that supports deferring to patient preference
when the pt is:
- Requesting an ordered lesser potent pain medication.
Least to most potent pain medications are defined
as: acetaminophen < NSAID < tramadol < opioids
(morphine, oxycodone, hydromorphone).
- Requesting a lesser dose of the same medication IF
ORDERED.
- Requesting a less intrusive route of administration
if both routes are prescribed by the provider (PO <
IV).
07/25/24 23:16
Code Status As Directed
Resuscitation Status: Full Code
07/25/24 23:19
COVID-19 Antigen Stat
Source: Nasal Swab
Influenza A+B Rapid Molecular Stat
MENDY Source: Nasal Swab
Specimen Description:
MRSA Screen Routine
MENDY Source: Nose
Specimen Description:
07/25/24 23:22
Add On- LAB Stat
Tests Added?: Magnesium level
07/25/24 23:24
Urinalysis Reflex To Culture Stat
Date Specimen was Collected: 07/25/24
Time Specimen was Collected: 23:18
Urine Microscopic Reflex Cult Stat
07/26/24 00:23
0.9% Sodium Chloride 1000 ml [Nss] 1,000 ml IV 100 mls/hr
Acetaminophen [Tylenol] 650 mg PO Q4HPRN PRN
Bisacodyl [Dulcolax] 10 mg RECTAL [id number] PRN
Metoclopramide [Reglan] 10 mg IV Q6HPRN PRN
Oxycodone [Roxicodone] 5 mg PO Q4HPRN PRN
07/26/24 00:23
Consult Notification Routine
Specialty to Notify: Infectious Disease
Consult Notification Routine
Specialty to Notify: Oncology
INFECTIOUS DISEASE CONSULT Routine
Consulting Provider: Deny Tirado
Was physician already notified: No
Reason for consult: neutropenic fever
ONCOLOGY CONSULT Routine
Consulting Provider: Sergio Mullins
Was physician already notified: No
Reason for consult: neutropenic fever, anal ca on chemo/XRT
Activity As Directed
Activity Level: With Assistance
Vital Signs As Directed
Frequency: Per unit guidelines
Pulse Ox/spot Check [RESP] Routine
Quantity: 1
DX Deep Vein Thrombosis Video Routine
07/26/24 05:18
Basic Metabolic Panel IN AM
Complete Blood Count/No Diff IN AM
Magnesium IN AM
07/26/24 06:00
ECG [Electrocardiogram (*1)] IN AM
Reason for Study: QTc Monitoring
1800 calorie (15 carb) Diabetic
At Your Request: Full Participation
Cefepime HCl [Maxipime] 2,000 mg IV Q8H
Levothyroxine [Synthroid] 100 mcg PO DAILY @ 0600
07/26/24 08:00
Ezetimibe [Zetia] 10 mg PO DAILY
07/26/24 18:00
Enoxaparin Sodium [Lovenox] 40 mg SC QPM
07/26/24 22:00
Pravastatin Sodium [Pravachol] 20 mg PO HS
07/27/24 11:00
DC Protocol for Telemetry ONCE
Abnormal Lab Results
07/25/24 07/25/24 07/25/24
19:57 22:02 23:24
WBC 1.1 L* 10^3/uL
(4.8-10.8)
RBC 3.36 L 10^6/uL
(4.20-5.40)
Hgb 10.3 L g/dL
(12.0-16.0)
Hct 29.6 L %
(37.0-47.0)
Plt Count 76 L D 10^3/uL
(130-400)
Abs Neuts (Manual) 0.3 L* 10^3/uL
(1.4-6.5)
Segmented Neutrophils 28 L %
(42-75)
Band Neutrophils 4 H %
(0-3)
Monocytes (Manual) 20 H %
(2-9)
Eosinophils (Manual) 20 H %
(0-6)
Glucose 158 H mg/dl
(70-99)
Ur Occult Blood Reflex 3+ A 1+ A
(Negative) (Negative)
Leukocyte Esterase Rfl 3+ A 1+ A
(Negative) (Negative)
Urine RBC 26-30 A /HPF
(0-2)
Urine WBC (Reflex) >100 A /HPF 26-30 A /HPF
(0-5) (0-5)
Urine Bacteria (Reflex) Many A Few A
(Negative) (Negative)
Urine Albumin (Reflex) 3+ A 2+ A
(Neg - Trace) (Neg - Trace)
07/25/24 22:02
07/25/24 22:02
Vital Signs
Initial and Last Documented VS:
Initial Vital Signs
Temp Pulse Resp BP Pulse Ox
100.3 F 101 16 133/80 99
07/25/24 19:47 07/25/24 19:47 07/25/24 19:47 07/25/24 19:47 07/25/24 19:47
Last Documented Vital Signs
Temp Pulse Resp BP Pulse Ox
99.2 F 82 18 119/55 99
07/26/24 03:41 07/26/24 03:41 07/26/24 03:41 07/26/24 03:41 07/26/24 03:41
MDM/Problems Addressed
Differential Diagnosis Includes:
Concern for neutropenic fever, sepsis/bacteremia, UTI, proctitis.
Currently hemodynamically stable and overall nontoxic in appearance.
Patient certainly at significant risk for bacteremia/sepsis due to immunocompromise related to chemotherapy, history of diabetes.
Labs are pending.
Urinalysis concerning for UTI showing +3 leukocyte esterase. Greater than 100 WBCs, many bacteria.
Blood and urine cultures are pending. CMP is unremarkable. Lactic acid is normal.
Will initiate IV fluid bolus as well as initiate broad-spectrum antibiotics for coverage of potential UTI, neutropenic fever and due to some chronic anal discomfort, diarrhea, concern for bacterial related proctitis thus will add metronidazole.
Abdomen is soft without appreciable tenderness, no CVA tenderness. No cough and lungs are clear to auscultation. At this point no indication for imaging.
Will admit to hospitalist service.
Chronic conditions affecting care: DM, Immunosuppressed and Cancer
*Pulse Oximetry
Patient hypoxic: no (99% on room air)
*Paper Deliverer Interpretation
Rate: normal
Interpretation: normal
Rhythm: sinus
*Critical Care Note
Total Time (30-74mins, 75-104mins- exclusive of procedures): Not Applicable
ED Attending Note
-
Portions of this chart may have been created with voice recognition software.� Occasional wrong word or��sound alike� substitutions may have occurred due to the inherent limitations of voice recognition software.
Discharge Plan
Departure
Patient Disposition: Admit
Date of Disposition: 07/25/24
Time of Disposition: 22:55
Admit to: Med/Surg
Admit to doctor: Shane
Presentation/result/management discussed w/ accepting MD/DO: Hospitalist
Condition: Serious
Discharge Problem:
Neutropenic fever, Urinary tract infection, Anal squamous cell carcinoma, Radiation induced proctitis
Interventions
Interventions:
*Risk Screen - Suicide Last Done: 07/25/24 19:47
*General Assessment Last Done: 07/25/24 21:22
*Neglect/Abuse Screening Last Done: 07/25/24 19:47
*ED- Fall Risk Assessment Last Done: 07/25/24 19:47
*ED COVID-19 Vaccine History Last Done: 07/25/24 21:25
*Nursing Disposition Last Done: 07/26/24 00:19
ED- Neurological Assessment Last Done: 07/25/24 22:08
ED-Skin Assessment Last Done: 07/25/24 22:08
Discharge Date and Time
Discharge Date/Time: 07/26/24 00:19
--- NOTE | 2024-07-25 22:49 | HPS.HSE ---
Family Physician
-
Family Physician: Alba Garner
Chief Complaint
-
Fever
History of Present Illness
This is a 68-year-old female with past medical history significant for hyperlipidemia, doc-xpchpdo-lytqxteut diabetes, hypothyroid, and recent diagnosis of anal cancer status post XRT x 28 days as well as recent 5-FU and mitomycin presenting to the
[place] emergency department with a fever up to 103 today.
Patient last received chemotherapy about 6 days ago, also had XRT at that time. She is without any acute symptoms including urinary discomfort, flank pain, hematuria, abdominal pain nausea or vomiting. She denies having any cough. She denies any
shortness of breath. She denies having any chest pain. She has been having diarrhea since XRT and ongoing anal discomfort which is unchanged. She denies feeling dizzy or lightheaded.
Here in the emergency department the patient had a temp of 100.3, blood pressure remained stable at 110/60 with a pulse of 91 she is satting 97% on room air.
ECG shows sinus tachycardia with QTc of 663 which is different from prior but no acute ischemia.
UA was positive for WBCs leukocyte esterase and bacteria, negative for nitrites.
CBC with white count of 1.1, ANC less than 1000, platelet 75, hemoglobin 10.3. Had 5 pounds yesterday.
Electrolytes are normal. BUN/creatinine normal.
Medical History
Past Medical History
Past Medical History: Reports CAD (Anal cancer diagnosed 06/03/2024, status post X XRT times 28Days, 5-FU and mitomycin.), Hypercholesterolemia, Hypothyroidism and NIDDM
Past Surgical History: Reports None
Social History
Tobacco: Non-smoker
Alcohol: Occasional
Drug: None
Personal:
Living: With Family
Employment: Retired
Family History
Family History: Not pertinent
Allergies / Home Medications
Allergies reflects when Allergies were last updated in [employer].
Home Medications with original date entered in [employer]
Allergy/Medication List:
Allergies
Allergy/AdvReac Type Severity Reaction Status Date / Time
Sulfa (Sulfonamide Allergy skin Verified 07/25/24 19:50
Antibiotics) redness
Home Medications
levothyroxine 100 mcg tablet 100 mcg PO DAILY 09/13/16
metformin 500 mg tablet,extended release 24 hr 500 mg PO BID 09/13/16
pravastatin 20 mg tablet 20 mg PO HS 06/08/24
ezetimibe 10 mg tablet (Zetia) 10 mg PO DAILY 07/25/24
Review of Systems
-
History Source: Patient and Family
Constitutional: Reports Fever and Chills
EENT: Reports No Symptoms
Respiratory: Reports No Symptoms
Cardiac: Reports No Symptoms
Abdomen/GI: Reports Diarrhea
: Reports No Symptoms
Musculoskeletal: Reports No Symptoms
Skin: Reports No Symptoms
Neurological: Reports No Symptoms
Endocrine: Reports No Symptoms
Hematologic/Lymphatic: Reports No Symptoms
Psych: Reports No Symptoms
Physical Exam
Vital Signs
Vital Signs
Temp Pulse Resp BP Pulse Ox
100.3 F 91 26 111/61 97
07/25/24 19:47 07/25/24 22:06 07/25/24 21:30 07/25/24 22:06 07/25/24 21:30
Physical Exam
General: Well Developed, Well Nourished and No Apparent Distress
HEENT: NormoCephalic, Moist mucous membranes and Atraumatic
Respiratory: Clear
Cardiac: S1/S2 and Regular Rhythm; No Murmur or Rub
GI: Soft, Non Tender, Non Distended and Normal Bowel Sounds; No Organomegaly
Rectal: Deferred by Provider
Musculoskeletal: No Clubbing, No Cyanosis and No Edema
Skin: No Rash
Neuro: Nonfocal/grossly intact
Hematologic/Lymphatic: No Lymphadenopathy
Laboratory Results
-
07/25/24 22:02
Laboratory Results
Lactic Acid 1.6 mmol/L (0.7-2.0) 07/25/24 22:02
Total Bilirubin 0.4 mg/dl (0.2-1.3) 07/25/24 22:02
AST 16 U/L (14-36) 07/25/24 22:02
ALT 17 U/L (0-35) 07/25/24 22:02
Alkaline Phosphatase 48 U/L (38-126) 07/25/24 22:02
Data Reviewed
-
Medical Tests (Nuc Med, Echo, EKG etc): Image Personally Visualized and interpreted
Lab Data: Labs Reviewed by me
Old Records: Reviewed
Impression/Plan
-
IMPRESSION:
68-year-old female with past medical history significant for anal cancer on XRT and chemotherapy, last chemo approximately 6 days ago presents to the emergency department with fevers and chills without any other localizing symptoms. She has been
having diarrhea which is typical for post infusion. She denies urinary symptoms. She denies flank pain. Anal discomfort is at baseline and she has no nausea or vomiting. There is no skin rash. She denies any shortness of breath cough chest pain
or dyspnea on exertion. No known sick contacts. Initial UA is positive but patient feels this is contaminated with perianal secretions. ECG notable for prolonged QTc. Patient is not on any antibiotics prophylactically. She has no recent travel.
She has no history of recurrent infections or resistant bacteria and has not had any recent hospitalizations.
PLAN:
Febrile neutropenia -WBC 1.1, ANC less than 1000, last chemo 1 week ago, last radiation 1 week ago, hemodynamically stable but remains febrile to 100.3. Given u/a suspect urinary source.
- Blood cultures, repeat UA, urine culture, additional workup with flu COVID testing
- X-ray
- MRSA swab
- Suspect gram-negative infection typical for neutropenic fever, cover with cefepime at this time
- Antipyretics and pain control
- ID consult
- Oncology consultation
QTc prolongation - Not on zogran or other qt prolonging meds
- check mag level
- 1 g mag
- telemetry
- ecg in am
Diabetes
- Hold metformin
- Sliding scale insulin
Hypothyroid
- Continue Levothyroid
DVT prophylaxis�Lovenox subcu
CODE STATUS�full code
[2024-07-25 22:51] LABS: Hematocrit 29.6 % (37.0-47.0); Hemoglobin 10.3 g/dL (12.0-16.0); Mean Corp Hgb Conc. 34.8 g/dL (33.0-37.0); Mean Corpuscular Hgb 30.7 pg (27.0-31.0); Mean Corpuscular Volume 88.1 fL (81.0-99.0); Mean Platelet Volume 9.2 fL (7.4-10.4); Platelet Count 76 10^3/uL (130-400); Red Blood Cell Count 3.36 10^6/uL (4.20-5.40); Red Cell Dist. Width 14.3 % (11.5-14.5); White Blood Cell Count 1.1 10^3/uL (4.8-10.8)
[2024-07-25 22:59] LABS: Band Neutrophils 4 % (0-3); Eosinophils 20 % (0-6); Lymphocytes 27 % (20-51); Monocytes 20 % (2-9); Normal RBC Morphology No; Platelets Checked Yes; Segmented Neutrophils 28 % (42-75)
[2024-07-25 23:00] VITALS: BP 118/60
[2024-07-25 23:00] LABS: Absolute Neutrophils -Man Diff 0.3 10^3/uL (1.4-6.5); Hypochromasia 1+; Macrocytosis 1+
[2024-07-25 23:01] LABS: Polychromasia Slight; Total Cells Counted 100
--- NOTE | 2024-07-25 23:03 | VATNOTE ---
AFTER INITIAL BLOOD RETURN OBTAINED WHEN PORT ACCESSED, UNABLE TO OBTAIN SUFFICIENT AMT OF BLOOD FOR SPECIMENS ORDERED. PCN AND AWARE. LABS OBTAINED PERIPHERALLY. IF NO BR AFTER BOLUS OF IVF, WILL CONSIDER CATHFLO PROTOCOL.VAT TO MONITOR.
[2024-07-25] MEDS: TYLENOL 1000 MG PO (23:09)
[2024-07-25] MEDS: NSS 1600 ML IV (23:10)
[2024-07-25] MEDS: MAXIPIME 2000 MG IV (23:10)
[2024-07-25] MEDS: FLAGYL 500 MG 100 IV (23:11)
[2024-07-25 23:55] LABS: Magnesium 1.9 mg/dl (1.6-2.3)
[2024-07-25 23:59] LABS: Urine Albumin 2+ (Neg - Trace); Urine Bilirubin Negative (Negative); Urine Glucose Negative (Negative); Urine Ketone Negative (Negative); Urine Leukocyte 1+ (Negative); Urine Nitrite Negative (Negative); Urine Occult Blood 1+ (Negative); Urine Specific Gravity 1.015 (<1.030); Urine Urobilinogen Negative (Neg - 1+)
[2024-07-26] VITALS (7 sets, daily range): BP systolic 96–129; BP diastolic 50–65; BMI 31.4
[2024-07-26] LABS: Urine Character Clear (Clear); Urine Color Yellow
[2024-07-26 00:08] LABS: COVID-19 Antigen Negative (Negative)
[2024-07-26 00:25] LABS: Urine White Cell 26-30 /HPF (0-5)
[2024-07-26 00:26] LABS: Urine Red Blood Cell None Seen /HPF (0-2)
[2024-07-26 00:27] LABS: Urine Bacteria Few (Negative)
[2024-07-26] MEDS: NSS 1000 IV (03:15)
--- NOTE | 2024-07-26 04:13 | TRANSFER ---
Pt admitted to [facility] from ED with neutropenic fever and recent diagnosis of anal cancer. Pt walked to bed from stretcher. Oriented to room, call fowler within reach plan of care ongoing.
[2024-07-26] MEDS: MAXIPIME 2000 MG IV ×3 (05:43→21:12)
[2024-07-26] MEDS: SYNTHROID 100 MCG PO (05:43)
--- NOTE | 2024-07-26 05:44 | VATNOTE ---
PRT NOW WITH A GOOD BLOOD RETURN. LABS OBTAINED ORDERED. PCN MADE AWARE.
[2024-07-26 05:45] LABS: Hematocrit 23.3 % (37.0-47.0); Hemoglobin 8.1 g/dL (12.0-16.0); Mean Corp Hgb Conc. 34.8 g/dL (33.0-37.0); Mean Corpuscular Hgb 30.5 pg (27.0-31.0); Mean Corpuscular Volume 87.6 fL (81.0-99.0); Mean Platelet Volume 9.9 fL (7.4-10.4); Platelet Count 60 10^3/uL (130-400); Red Blood Cell Count 2.66 10^6/uL (4.20-5.40); Red Cell Dist. Width 14.4 % (11.5-14.5)
[2024-07-26 05:54] LABS: Blood Urea Nitrogen 10 mg/dl (7-17); Calcium 7.9 mg/dl (8.4-10.2); Carbon Dioxide 21 mmol/L (22-30); Chloride 115 mmol/L (98-107); Estimated Creatinine Clearance 88 ml/min; Glucose 116 mg/dl (70-99); Magnesium 1.7 mg/dl (1.6-2.3); Potassium 3.3 mmol/L (3.5-5.1); Sodium 142 mmol/L (135-145); eGFR > 60.00
--- NOTE | 2024-07-26 07:49 | PTCARENOTE ---
ECG obtained per order, result= critical test result: long QTc, made aware.
[2024-07-26 07:50] LABS: Glucose - Point of Care 170 mg/dl (70-99)
[2024-07-26 08:26] LABS: TSH 4.18 uIU/ml (0.47-4.68)
[2024-07-26] MEDS: MAGNESIUM SULFATE 50 IV (08:33)
[2024-07-26] MEDS: ZETIA 10 MG PO (08:33)
--- NOTE | 2024-07-26 09:14 | CON.ONC ---
Consultation
-
Date Consultation Requested: 07/25/24
Date Consultation Performed: 07/26/24
Requesting Provider: Walter Thompson
Performing Provider: Sunday No
Reason for Consultation: Squamous cell carcinoma of the anus
Impression
Impression
68 old female status post chemoradiation with 5-FU and mitomycin, 28 fractions XRT for moderate differentiated anal squamous cell carcinoma, p16, p40 positive. Presents for neutropenic fever, found to have ANC less than 1000 initiated on cefepime
and placed on neutropenic precautions. Oncology was consulted as patient follows [facility] cancer and recently received chemoradiation.
Plan
Plan
#Neutropenic fever
#Pancytopenia
On admission WBCs 1.1, ANC 0.3 on admission. Platelets downtrending 60 today, hemoglobin downtrending 8.1 today
Very likely secondary to chemoradiation with 5-FU and mitomycin
Initiated on neutropenic precautions
Blood cultures drawn and pending
Initiated on broad-spectrum antibiotic with Pseudomonas coverage
ID consulted and following, will defer antibiotic management
Continue trending cell counts with daily CBC with differential
Continue neutropenic precautions until cell counts improve
#Anal squamous cell carcinoma, p16 positive
Follows Dr. No at [facility] and Dr. Mckeon at [facility] radiation oncology
Status post chemoradiation w 5-FU and mitomycin, 28 fractions XRT, completed course 07/19/2024. Reportedly started her regiment at the end of May.
Patient reports that her anterior thigh skin folds have been experiencing progressive discomfort, increased redness and progressive skin breaks.
Skin folds are known site of increased skin toxicity secondary to attenuation of photons during XRT
Reports she has been using lotion creams which do help however she does report discomfort when moving. Reportedly used IV Toradol in the past, concern for increased GI toxicity and bleeding with low platelets after recent chemo with NSAIDs.
Patient has as needed oxycodone for moderate pain, will reevaluate pain regiment in a.m.
We will continue to follow along
#Prolonged QTc
#Diarrhea
Likely secondary to chemoradiation
QTc prolonged on admission, now 458
QTc likely secondary to massive watery volume of diarrhea and electrolyte abnormalities, patient reports last episode of diarrhea last night
Fluid replacement, currently getting IV fluids
Continue repletion of magnesium and potassium as needed
Continue checking daily EKGs to monitor QTc
Patient History
History of Present Illness
68-year-old female past medical history asy-[id number] diabetes, hyperlipidemia, hypothyroidism, left breast cancer 2018 status post lumpectomy and XRT. Diagnosed with anal squamous cell carcinoma, p16, p40 positive, moderate differentiated,
in May 2024 while undergoing routine surveillance colonoscopy. She follows Dr. No at [facility] for medical oncology and Dr. mckeon at [facility] for radiation oncology. She has received 2 rounds of concurrent chemoradiation,
chemotherapy 5-FU mitomycin with 28 fractions XRT. Course was completed July 19, 2024. Patient presented to the emergency department with acute onset of fever Tmax 103. CBC in the outpatient setting revealed neutropenia white blood cell count 1.7
ANC 884. Emergency Department EKG demonstrated sinus tachycardia with QTc 663, no acute ischemia. UA positive for WBCs, leukocyte esterase and bacteria, negative for nitrates. Counseled Emergency Department demonstrate WBC 1.1, ANC less than 1000
platelets 75 hemoglobin 10.3. Chest x-ray demonstrated no active cardiopulmonary disease. Patient was started on antibiotics for neutropenic fever, cefepime with coverage of Pseudomonas. Oncology was consulted due to history of chemotherapy and
anal squamous cell carcinoma
Past-Medical/Surgical History
Status postlumpectomy and XRT left breast cancer, chemoradiation anal squamous cell carcinoma.
Patient Medication
�Medication �Instructions �Recorded �Confirmed �Last Taken �Type
levothyroxine 100 mcg tablet 100 mcg PO DAILY 09/13/16 07/25/24 06/08/24 History
metformin 500 mg tablet,extended 500 mg PO BID 09/13/16 07/25/24 06/08/24 History
release 24 hr
pravastatin 20 mg tablet 20 mg PO HS 06/08/24 07/25/24 06/07/24 History
ezetimibe 10 mg tablet (Zetia) 10 mg PO DAILY 07/25/24 07/25/24 Unknown History
Active Medications
Generic Name Dose Route Start Last Admin
Trade Name Freq PRN Reason Stop Dose Admin
Acetaminophen 650 mg 07/26/24 00:23
Acetaminophen 325 Mg Tablet PO 08/23/24 00:22
Q4HPRN PRN
mild pain/SILVA/temp> 100.4F
Bisacodyl 10 mg 07/26/24 00:23
Bisacodyl 10 Mg Rectal Suppository RECTAL 08/23/24 00:22
[id number] PRN
constipation
Cefepime HCl 2,000 mg 07/26/24 06:00 07/26/24 05:43
Cefepime Hcl 2,000 Mg/12.5 Ml Vial IV 2,000 mg
Q8H REECE Administration
Dextrose 12.5 grams 07/26/24 07:38
Dextrose 50% (0.5 Grams/Ml) 50 Ml Syringe IV 08/23/24 07:37
[id number] PRN
hypoglycemia
Protocol
Ezetimibe 10 mg 07/27/24 22:00
Ezetimibe (Zetia) 10 Mg Tablet PO 08/24/24 21:59
HS REECE
Enoxaparin Sodium 40 mg 07/26/24 18:00
Enoxaparin Sodium 40 Mg/0.4 Ml Syringe SC 08/23/24 17:59
QPM REECE
Glucagon 1 mg 07/26/24 07:38
Glucagon 1 Mg Vial IM 08/23/24 07:37
PRN PRN
hypoglycemia
Protocol
Heparin Sodium (Porcine) 500 unit 07/26/24 07:15
Heparin Flush Pf (100 Unit/Ml) 5 Ml Syringe IV 08/23/24 07:14
PER PROTOCOL REECE
Sodium Chloride 1,000 mls @ 100 mls/hr 07/26/24 00:23 07/26/24 03:15
Nss IV 07/26/24 10:22 1,000 mls
.Q10H REECE Administration
Magnesium Sulfate 2 gram in 50 mls @ 25 mls/hr 07/26/24 07:52 07/26/24 08:33
Magnesium Sulfate IV 07/26/24 09:51 50 mls
NOW STA Administration
Insulin Aspart 0 units 07/26/24 11:30
Insulin Aspart Low Resistance 300 Units/3 Ml Pen.Injctr SC 08/23/24 11:29
AC REECE
Protocol
Levothyroxine Sodium 100 mcg 07/26/24 06:00 07/26/24 05:43
Levothyroxine 100 Mcg Tablet PO 08/23/24 05:59 100 mcg
DAILY @ 0600 REECE Administration
Metoclopramide HCl 10 mg 07/26/24 00:23
Metoclopramide 10 Mg/2 Ml Vial IV 08/23/24 00:22
Q6HPRN PRN
nausea/vomiting
Oxycodone HCl 5 mg 07/26/24 00:23
Oxycodone 5 Mg Regular Release Tablet PO 08/09/24 00:22
Q4HPRN PRN
moderate pain
Pravastatin Sodium 20 mg 07/26/24 22:00
Pravastatin 20 Mg Tablet PO 08/23/24 21:59
HS REECE
Sodium Chloride 0 flush 07/25/24 23:00
Sodium Chloride 0.9% (Flush) Syringe IV 08/22/24 22:59
PER PROTOCOL REECE
Sodium Chloride 0 flush 07/26/24 01:00
Sodium Chloride 0.9% (Flush) Syringe IV 08/23/24 00:59
PER PROTOCOL REECE
Review of Systems
-
History Source: Patient and Family
Constitutional: Reports Fever, Weight Loss and Chills
Respiratory: Reports No Symptoms
Cardiac: Reports No Symptoms
GI: Reports Diarrhea (Multiple episodes of watery diarrhea, last reported time yesterday.); Denies Nausea or Vomiting
Skin: Reports Other (Discomfort in anterior folds of thigh bilaterally. Reports redness, foul smell from open wounds secondary to radiation)
Neuro: Reports Dizzy (Reported 1 episode of dizziness during treatment, no neurologic symptoms currently)
Physical Exam
-
General: Well Developed, Well Nourished, No Apparent Distress and Comfortable
Cardiology: Normal Sinus Rhythm, S1, S2 and No Murmur
Pulmonary: Clear
Musculoskeletal: No Edema
Skin: Other (Redness appreciated in anterior thighs bilaterally, there is open skin break bilaterally)
Labs
Lab Results
WBC 1.0 10^3/uL (4.8-10.8) L* 07/26/24 05:18
RBC 2.66 10^6/uL (4.20-5.40) L 07/26/24 05:18
Hgb 8.1 g/dL (12.0-16.0) L D 07/26/24 05:18
Hct 23.3 % (37.0-47.0) L 07/26/24 05:18
MCV 87.6 fL (81.0-99.0) 07/26/24 05:18
MCH 30.5 pg (27.0-31.0) 07/26/24 05:18
MCHC 34.8 g/dL (33.0-37.0) 07/26/24 05:18
RDW 14.4 % (11.5-14.5) 07/26/24 05:18
Plt Count 60 10^3/uL (130-400) L D 07/26/24 05:18
MPV 9.9 fL (7.4-10.4) 07/26/24 05:18
Creatinine 0.5 mg/dL (0.6-1.0) L 07/26/24 05:18
Vital Signs
Vital Signs
Temp Pulse Resp BP Pulse Ox
99.5 F 90 18 96/65 97
07/26/24 07:14 07/26/24 07:14 07/26/24 07:14 07/26/24 07:14 07/26/24 07:14
[2024-07-26 09:22] LABS: Glycohemoglobin (HgbA1c) 6.7 % (4.0-5.6)
--- NOTE | 2024-07-26 09:42 | CON.ID ---
Consultation
-
Date/Time Consultation Requested: July 26, 2024 0023
Date/Time Consultation Performed: July 26, 2024 0992
Requesting Provider: Dr. Walter Thompson
Performing Provider: Dr. Vi Ceja
Reason for Consultation: Neutropenic fever
Chief Complaint / Past History
Chief Complaint
Fever
History of Present Illness
68-year-old female with history of diabetes mellitus, left breast cancer treated, recent diagnosis of anal squamous cell carcinoma recently completed chemoradiation July 19 who presented to the hospital July 25 due to fever up to 103. Yesterday she
developed shaking chills. Her who is a production recovery operator took her temperature and it was 103. In ED temperature 100.3, ANC 300, chest x-ray negative. UA 1+LE, 26-30wbc. Ucx pending. Blood cultures pending. She received cefepime and
metronidazole in the ER. Focal symptoms. No headache, sinus congestion, or sore throat. No cough or shortness of breath. No nausea, vomiting, or abdominal pain. She has chronic diarrhea from radiation and chemo. No flank pain. She does have
urinary discomfort from radiation. She has bilateral inguinal wounds from the radiation. Otherwise no rash. No specific joint pains. No ill contacts. She stays home except for doctors visits. She has 2 cats, no cat scratches or bites.
Past History
Additional Past Medical History:
Diabetes mellitus
Anal cancer diagnosed 06/03/2024 completed XRT. 5-FU and mitomycin 07/19/24.
Hypothyroidism
CAD
History of diverticulitis
History of left breast cancer completed treatment
Bilateral total knee replacement
Port placement
Allergy History:
Sulfa (Sulfonamide Antibiotics) Allergy (Verified 07/25/24 19:50)
skin redness
Medications Reviewed: Yes
Current Antibiotics:
Cefepime 2 g IV every 8 hours
Social History
Tobacco: Non-Smoker
Alcohol: None
Drug: None
Personal:
Living: With Family
Family History
Family History: Not Pertinent
Review of Systems
Review of Systems
General: Fever and Chills; Negative Change in Appetite
HEENT: Negative Stiff Neck, Sinus Problems, Headache or Pharyngitis
Cardiovascular: Negative Chest Pain or Dyspnea
Respiratory: Negative Dyspnea, Cough or Sputum Production
Gasteroenterology: Diarrhea; Negative Nausea or Vomiting
Genital / Urological: Negative Hematuria or Flank Pain
Endocrine: Weakness
Neurological: Negative Dizziness
All systems: All other systems were reviewed and were negative
Vital Signs
Temp Pulse Resp BP Pulse Ox
99.5 F 90 18 96/65 97
07/26/24 07:14 07/26/24 07:14 07/26/24 07:14 07/26/24 07:14 07/26/24 07:14
Physical Exam
Physical Exam
Constitutional: No Acute Distress and Comfortable
Head: Other (No frontal or maxillary sinus tenderness)
Eyes: No Conjunctival Hemorrhage and Sclera Anicteric
Pharynx: Benign
Lymph Nodes: Negative Lymphadenopathy
Cardiovascular: Regular Rate, S1/S2 and S3/S4
Pulmonary: Clear
Gastrointestinal: Soft, Non Tender, Non Distended and Normal Bowel Sounds
Genito-Urinary: Negative CVA Tenderness
Extremities: Negative Edema
Musculoskeletal: Negative Joint Swelling (bilateral knees) or Joint Effusion (bilateral knees)
Skin: Other (Ecchymosis over right knee)
Wound: Other (Bilateral inguinal with mild radiation burn and skin maceration)
Neurological: AO x 3
Lines: Port (RCW no erythema)
Lab / Diagnostic Study Results
07/26/24 05:18
07/26/24 05:18
Total Counted 100 07/25/24 22:02
Abs Neuts (Manual) 0.3 10^3/uL (1.4-6.5) L* 07/25/24 22:02
Segmented Neutrophils 28 % (42-75) L 07/25/24 22:02
Band Neutrophils 4 % (0-3) H 07/25/24 22:02
Lymphocytes (Manual) 27 % (20-51) 07/25/24 22:02
Eosinophils (Manual) 20 % (0-6) H 07/25/24 22:02
Basophils (Manual) 1 % 07/25/24 22:02
Lactic Acid 1.6 mmol/L (0.7-2.0) 07/25/24 22:02
Ur Squamous Epith Cells 11-15 /LPF (Few) 07/25/24 23:24
Microbiology Results
Micro:
07/25/24 22:26 Blood Culture - Pending
Blood/Venous
07/25/24 23:19 Influenza Types A & B (RONAL) - Final
Nasal Swab Negative for Influenza A & B, NAAT
Negative results must be combined with clinical observations
and patient history.
Nucleic Acid Amplification test (NAAT)performed on the
[employer] platform.
07/25/24 23:19 MRSA Screen - Pending
Nose
07/25/24 22:26 Blood Culture - Pending
Blood/Venous
07/25/24 19:57 Urine Culture - Pending
Urine
07/25/24 CXR: No evidence of active cardiopulmonary disease.
Assessment / Plan
# Neutropenic fever
# Anal cancer - completed chemoradiation 07/20/24
# Pancytopenia due to chemo
- COVID/FLU neg
-CXR neg
-Await urine culture and blood cultures
- Agree with cefepime 2 g IV every 8 hours.
- Local wound care to bilateral inguinal radiation dominguez.
- Follow temps
-Await for bone marrow recovery.
--- NOTE | 2024-07-26 10:45 | W.PN.HOSP.TC ---
Today's Communication/Plan
-
See PN
Assessment / Plan
Assessment / Plan
68yo F with PMHX of hypothyroidism, HLD, DM, rectal CA s/p RT for 4 weeks and completed chemo few days ago came with suddent onset of fever. c/o only mild dysuria, managed for UTI with neutropenia
A/P:
#pancytopenia 2/2 CA and chemo
follow CBC
neutropenic precautions
Oncology consult
#Fever, possible neutropenic vs UTI
No respiratory or abdominal symptoms except of chronic diarrhea
check c.diff
COnt Cefepime
follow Bcx
follow Ucx
ID consult placed on admission
#Prolonged QTc
#Hypokalemia
#Hypomagnesemia
avoid QT prolonging agents
replete and follow electrolytes
TSH WNL
#Hypothyroidism
#HLD
cont home meds
#DM type 2 with unspecified complications
Accuchecks, DM diet, Insulin SS
DVT ppx lovenox
Full code
I have spent at least 57min reviewing chart, test results, communication with consultants and providing direct patient care
Anticipated Discharge: > 48 hours
Subjective/Interval History
-
Date of Service: July 26, 2024
Objective Data
-
Labs:
Laboratory Results
07/25/24 07/26/24
22:02 05:18
WBC 1.1 L* 1.0 L*
Hgb 10.3 L 8.1 L D
Hct 29.6 L 23.3 L
Plt Count 76 L D 60 L D
Sodium 142
Potassium 3.3 L
Chloride 115 H
Carbon Dioxide 21 L
BUN 10
Creatinine 0.5 L
Glucose 116 H
Calcium 7.9 L
Vital Signs:
Vital Signs
Temp Pulse Resp BP Pulse Ox
99.5 F 90 18 96/65 97
07/26/24 07:14 07/26/24 07:14 07/26/24 07:14 07/26/24 07:14 07/26/24 07:14
Review of Systems
-
History Source: Patient
All other systems: Reviewed and negative
Genitourinary: Reports Dysuria
Physical Exam
-
General: No Apparent Distress
HEENT: Normocephalic
Respiratory: Clear to Auscultation
Cardiac: Regular Rhythm
GI: Soft, Nontender and Nondistended
Musculoskeletal: No Clubbing, No Cyanosis and No Edema
Neuro: Awake, Alert, Oriented and AO x 3
Psych: Calm
--- NOTE | 2024-07-26 11:19 | CM ---
Met with patient and spouse at bedside
IMM form explained; form signed @ 1105
Pharmacy verified: [facility] @ [address]
Patient lives w/spouse; multilevel home; [address] + community; no steps to enter; 13 steps to 2nd floor; her bedroom and bath are on the 1st floor
PLOF: patient reported she is independent with ambulation, stairs, and ADLs; driving restricted at this time
NO DME
NO SNF or recent Home Health utilization history
will transport home
If home health is recommended for Wound Care, [facility] is preferred agency
Plan: discharge to home when medically stable; lining caser will monitor for DC needs
[2024-07-26 11:24] LABS: Glucose - Point of Care 161 mg/dl (70-99)
[2024-07-26] MEDS: KCL 270 MEQ IV (11:50)
[2024-07-26] MEDS: KCL 40 MEQ PO (11:50)
[2024-07-26] MEDS: STERILE WATER FOR INJECTION 10 ML IV ×2 (13:22→21:12)
--- NOTE | 2024-07-26 13:54 | WOUNDNOTE ---
[facility] RN note: Patient admitted with pancytopenia,
See H&P for complete history.
PMH: Per physician note, hypothyroidism, HLD, DM, rectal CA s/p RT for 4 weeks and completed chemo few days ago came with sudden onset of fever.
Wound Location and type/assessment: Patient admitted with open wounds to groin, buttocks and perineum secondary to recent radiation. Patient has been using Aquaphor as suggested by radiation oncology nursing. Patient would like to try a different
treatment to help with burning feeling. Patient is independent in all care and heels and sacrum are intact.
Appetite: Good
Pressure redistribution devices in place: Versa Care Air, heels off-loaded with pillows under calves
Plan: Recommend cold hydrogel to open wounds. Patient agreeable to try and would like to apply on her own. Hydrogel placed on ice at bedside for PRN application. Patient declines use of secondary dressing at this time. Will confirm orders with
hospitalist and update nurse.
Note to case management of equipment requested for discharge:
Recommend follow up at wound care center upon discharge.
[2024-07-26 16:37] LABS: Glucose - Point of Care 116 mg/dl (70-99)
[2024-07-26] MEDS: LOVENOX 40 MG SC (17:11)
[2024-07-26] MEDS: TYLENOL 650 MG PO (17:15)
[2024-07-26] MEDS: PRAVACHOL 20 MG PO (21:12)
[2024-07-26 21:22] LABS: Glucose - Point of Care 119 mg/dl (70-99)
[2024-07-27 03:00] VITALS: BP 116/89
[2024-07-27 04:56] LABS: Hematocrit 24.1 % (37.0-47.0); Hemoglobin 8.2 g/dL (12.0-16.0); Mean Corpuscular Hgb 30.4 pg (27.0-31.0); Mean Corpuscular Volume 89.3 fL (81.0-99.0); Platelet Count 56 10^3/uL (130-400); Red Cell Dist. Width 14.8 % (11.5-14.5); White Blood Cell Count 2.4 10^3/uL (4.8-10.8)
[2024-07-27 05:15] LABS: ALT (SGPT) 17 U/L (0-35); AST (SGOT) 15 U/L (14-36); Albumin 3.1 g/dl (3.5-5.0); Alkaline Phosphatase 46 U/L (38-126); Blood Urea Nitrogen 11 mg/dl (7-17); Calcium 8.5 mg/dl (8.4-10.2); Carbon Dioxide 24 mmol/L (22-30); Chloride 113 mmol/L (98-107); Estimated Creatinine Clearance 88 ml/min; Glucose 118 mg/dl (70-99); Magnesium 2.1 mg/dl (1.6-2.3); Sodium 142 mmol/L (135-145); Total Bilirubin 0.4 mg/dl (0.2-1.3); Total Protein 5.5 g/dl (6.3-8.2); eGFR > 60.00
[2024-07-27] MEDS: SYNTHROID 100 MCG PO (06:19)
[2024-07-27] MEDS: MAXIPIME 2000 MG IV (06:19)
[2024-07-27] MEDS: STERILE WATER FOR INJECTION 10 ML IV (06:19)
[2024-07-27] MEDS: FLUSH (NSS) 1 FLUSH IV (06:20)
[2024-07-27 07:14] LABS: Absolute Neutrophils -Man Diff 1.7 10^3/uL (1.4-6.5); Anisocytosis 1+; Band Neutrophils 10 % (0-3); Eosinophils 8 % (0-6); Hypochromasia Slight; Lymphocytes 11 % (20-51); Metamyelocytes 1 % (-); Monocytes 5 % (2-9); Myelocytes 2 % (-); Normal RBC Morphology No; Platelets Checked Yes; Segmented Neutrophils 63 % (42-75); Total Cells Counted 100
[2024-07-27 07:52] LABS: Glucose - Point of Care 136 mg/dl (70-99)
[2024-07-27 08:03] VITALS: BP 125/53
--- NOTE | 2024-07-27 09:26 | W.PN.HOSP.TC ---
Today's Communication/Plan
-
Pending Cx
COVID-19 test
cont cefepime
labs in AM
Assessment / Plan
Assessment / Plan
68yo F with PMHX of hypothyroidism, HLD, DM, rectal CA s/p RT for 4 weeks and completed chemo few days ago came with suddent onset of fever. c/o only mild dysuria, managed for UTI with neutropenia. Reached stage of BM recovery and pending
finalization of infectious w/u
A/P:
#pancytopenia 2/2 CA and chemo
follow CBC
neutropenic precautions
Oncology consult
#Chronic diarrhea 2/2 chemo and RT
C.diff neg
no change recently
Not accompanied by abd pain
#Fever, possible neutropenic vs UTI
No respiratory or abdominal symptoms except of chronic diarrhea
check c.diff
COnt Cefepime
follow Bcx
follow Ucx
ID consult placed on admission
#B/L groin skin desquamation 2/2 RTwound care
does not look infected
#Exposure to COVID-19
overnight 07/25/24-07/26/24
COVID-19 test as per infection control
#Prolonged QTc
#Hypokalemia
#Hypomagnesemia
avoid QT prolonging agents
replete and follow electrolytes
TSH WNL
#Hypothyroidism
#HLD
cont home meds
#DM type 2 with unspecified complications
Accuchecks, DM diet, Insulin SS
DVT ppx lovenox
Full code
I have spent at least 37min reviewing chart, test results, communication with consultants and providing direct patient care
Anticipated Discharge: 24 - 48 hours
Subjective/Interval History
-
Date of Service: July 27, 2024
Objective Data
-
Labs:
Laboratory Results
06/13/25
04:29
WBC 2.4 L*
Hgb 8.2 L
Hct 24.1 L
Plt Count 56 L
Sodium 142
Potassium 4.0
Chloride 113 H
Carbon Dioxide 24
BUN 11
Creatinine 0.5 L
Glucose 118 H
Calcium 8.5
Total Bilirubin 0.4
AST 15
ALT 17
Alkaline Phosphatase 46
Vital Signs:
Vital Signs
Temp Pulse Resp BP Pulse Ox
98.8 F 85 16 125/53 97
07/27/24 08:03 07/27/24 08:03 07/27/24 08:03 07/27/24 08:03 07/27/24 08:03
I&O
07/26/24 07/27/24 07/28/24
06:59 06:59 06:59
Intake Total 1010 / 1010
Balance 1010 / 1010
Review of Systems
-
History Source: Patient
All other systems: Reviewed and negative
Physical Exam
-
General: No Apparent Distress
HEENT: Normocephalic
Respiratory: Clear to Auscultation
Cardiac: Regular Rhythm
GI: Soft, Nontender and Nondistended
Musculoskeletal: No Clubbing, No Cyanosis and No Edema
Skin: Other (b/l inguinal skin desquamation 2/2 recent RT)
Neuro: Awake, Alert, Oriented and AO x 3
Psych: Calm
--- NOTE | 2024-07-27 09:31 | W.PN.ONC ---
Documented by User: Cedric Francisco DO, Resident 07/27/24 11:24
Today's Communication / Plan
-
Cell counts improving, patient no longer neutropenic, still afebrile. Consider discontinuation neutropenia precautions if ANC stays over 1.5
Pain management while inpatient with as needed oxycodone and topical creams
Await blood culture final results and transition to oral antibiotics as appropriate
Discontinue Dulcolax suppository in setting of anal radiation
Impression
Impression
68 old female status post chemoradiation with 5-FU and mitomycin, 28 fractions XRT for moderate differentiated anal squamous cell carcinoma, p16, p40 positive. Presents for neutropenic fever, found to have ANC less than 1000 initiated on cefepime
and placed on neutropenic precautions. Oncology was consulted for neutropenic fever as patient follows [facility] and recently received chemoradiation.
Plan
Plan
#Neutropenic fever
#Pancytopenia
On admission WBCs 1.1, ANC 0.3 on admission. Platelets stable 56, hemoglobin stable 8.2
Patient no longer neutropenic, absolute neutrophil count 1.7. WBCs trending upwards 2.4. Patient did receive G-CSF with her last regimen of chemo.
Very likely secondary to chemoradiation with 5-FU and mitomycin
Initiated on neutropenic precautions
Blood cultures drawn and pending
Initiated on broad-spectrum antibiotic with Pseudomonas coverage
ID consulted and following, will defer antibiotic management
Continue trending cell counts with daily CBC with differential
If platelets decrease below 50,000 and/or patient is bleeding, recommend consider discontinuation of DVT prophylaxis
Consider discontinuation of neutropenia precautions if ANC stays above 1.5
#Anal squamous cell carcinoma, p16 positive
Follows Dr. No at [facility] and Dr. Mckeon at [facility] radiation oncology
Status post chemoradiation w 5-FU and mitomycin, 28 fractions XRT, completed course 07/19/2024. Reportedly started her regiment at the end of May.
Patient reports that her anterior thigh skin folds have been experiencing progressive discomfort, increased redness and progressive skin breaks.
Skin folds are known site of increased skin toxicity secondary to attenuation of photons during XRT
Reports she has been using lotion creams which do help however she does report discomfort when moving. Reportedly used IV Toradol in the past, concern for increased GI toxicity and bleeding with low platelets after recent chemo with NSAIDs.
Patient has as needed oxycodone for moderate pain
Discontinue as needed Dulcolax suppository in setting of recent radiation
Has follow-up with Dr. No on Tuesday, if patient is still in hospital we will reschedule
#Prolonged QTc
#Diarrhea
Diarrhea likely secondary to chemoradiation
QTc prolonged on admission, now 458
QTc likely secondary to massive watery volume of diarrhea and electrolyte abnormalities, patient reports last episode of diarrhea last night
Fluid replacement, currently getting IV fluids
Continue repletion of magnesium and potassium as needed
Continue checking daily EKGs to monitor QTc
Subjective/Objective
Subjective/Objective
Patient reports difficulty sleeping secondary to pain in anterior thigh folds. Was unaware she had as needed oxycodone, hopefully will provide some relief.
Vital Signs:
Vital Signs
Temp Pulse Resp BP Pulse Ox
98.8 F 85 16 125/53 97
07/27/24 08:03 07/27/24 08:03 07/27/24 08:03 07/27/24 08:03 07/27/24 08:03
Lab Results:
Laboratory Data
WBC 2.4 10^3/uL (4.8-10.8) L* 07/27/24 04:29
Hgb 8.2 g/dL (12.0-16.0) L 07/27/24 04:29
Plt Count 56 10^3/uL (130-400) L 07/27/24 04:29
eGFR > 60.00 07/27/24 04:29

Documented by User: MERCEDES Kaur 07/27/24 15:01
Plan
Plan
#Neutropenic fever
#Pancytopenia
On admission WBCs 1.1, ANC 0.3 on admission. Platelets stable 56, hemoglobin stable 8.2
Patient no longer neutropenic, absolute neutrophil count 1.7. WBCs trending upwards 2.4. Patient did receive G-CSF with her last regimen of chemo.
Very likely secondary to chemoradiation with 5-FU and mitomycin
Initiated on neutropenic precautions
Blood cultures drawn and pending
Initiated on broad-spectrum antibiotic with Pseudomonas coverage
ID consulted and following, will defer antibiotic management
Continue trending cell counts with daily CBC with differential
If platelets decrease below 50,000 and/or patient is bleeding, recommend consider discontinuation of DVT prophylaxis
Consider discontinuation of neutropenia precautions if ANC stays above 1.5
#Anal squamous cell carcinoma, p16 positive
Follows Dr. No at [facility] and Dr. Mckeon at [facility] radiation oncology
Status post chemoradiation w 5-FU and mitomycin, 28 fractions XRT, completed course 07/19/2024. Reportedly started her regiment at the end of May.
Patient reports that her anterior thigh skin folds have been experiencing progressive discomfort, increased redness and progressive skin breaks.
Skin folds are known site of increased skin toxicity secondary to attenuation of photons during XRT
Reports she has been using lotion creams which do help however she does report discomfort when moving. Reportedly used IV Toradol in the past, concern for increased GI toxicity and bleeding with low platelets after recent chemo with NSAIDs.
Patient has as needed oxycodone for moderate pain
Discontinue as needed Dulcolax suppository in setting of recent radiation
Has follow-up with Dr. No on Tuesday, if patient is still in hospital we will reschedule
#Prolonged QTc
#Diarrhea
Diarrhea likely secondary to chemoradiation
QTc prolonged on admission, now 458
QTc likely secondary to massive watery volume of diarrhea and electrolyte abnormalities, patient reports last episode of diarrhea last night
Fluid replacement, currently getting IV fluids
Continue repletion of magnesium and potassium as needed
Continue checking daily EKGs to monitor QTc
Pt seen and examined. I agree with the assessment and plan by Dr. Francisco
--- NOTE | 2024-07-27 10:52 | W.PN.ID1 ---
Date of Service
Date of Service: July 27, 2024
Today's Communication
- Transition to empiric levofloxacin 750 mg qd x 5 days
Assessment / Plan
# Neutropenic fever- both resolved
# Anal cancer - completed chemoradiation 07/20/24
# Pancytopenia due to chemo
- COVID/FLU neg
-CXR neg
-blood cultures x 2 neg x 24h
- Ucx- 100K mixed chnug, probable contaminant
-DC cefepime 2 g IV every 8 hours.
- Transition to empiric levofloxacin 750 mg qd x 5 days
- Continue local wound care to bilateral inguinal XRT dominguez.
Chief Complaint
-: Fever
Subjective / Review of Systems
Feeling much improved. No focal sxs.
Vital Signs / Physical Exam
Vital Signs
Vital Signs
Temp Pulse Resp BP Pulse Ox
98.8 F 85 16 125/53 97
07/27/24 08:03 07/27/24 08:03 07/27/24 08:03 07/27/24 08:03 07/27/24 08:03
Physical Exam
Constitutional: No Acute Distress and Comfortable
Eyes: No Conjunctival Hemorrhage and Sclera Anicteric
Oropharyngeal: Benign
Cardiovascular: Regular Rate and S1/S2
Pulmonary: Clear
Gastrointestinal: Soft, Non Tender, Non Distended and Normal Bowel Sounds
Genito-Urinary: Negative CVA Tenderness
Extremities: Negative Edema
Neurological: AO x 3
Objective Data
Lab Data
Lab Results
07/27/24 04:29
07/27/24 04:29
Estimated Creat Clear 88 ml/min 07/27/24 04:29
Lactic Acid 1.6 mmol/L (0.7-2.0) 07/25/24 22:02
Total Bilirubin 0.4 mg/dl (0.2-1.3) 07/27/24 04:29
AST 15 U/L (14-36) 07/27/24 04:29
ALT 17 U/L (0-35) 07/27/24 04:29
Alkaline Phosphatase 46 U/L (38-126) 07/27/24 04:29
Most recent labs reviewed.
Micro Results:
07/25/24 19:57 Urine Culture - Final
Urine
07/25/24 23:19 MRSA Screen - Final
Nose No Methicillin Resistant Staphylococcus aureus isolated.
07/25/24 22:26 Blood Culture - Preliminary
Blood/Venous No Growth in 24 hours- Final report to follow
07/25/24 22:26 Blood Culture - Preliminary
Blood/Venous No Growth in 24 hours- Final report to follow
07/26/24 10:51 C. difficile GDH Antigen & Toxins - Final
Feces/Stool Negative for toxigenic C.difficile
07/25/24 23:19 Influenza Types A & B (RONAL) - Final
Nasal Swab Negative for Influenza A & B, NAAT
Negative results must be combined with clinical observations
and patient history.
Nucleic Acid Amplification test (NAAT)performed on the
[employer] platform.
07/25/24 CXR: No evidence of active cardiopulmonary disease.
Care Review
Plan reviewed with: Physician (Dr.. Roberson)
[2024-07-27 11:08] LABS: COVID-19 Antigen Negative (Negative)
[2024-07-27] MEDS: ROXICODONE 5 MG PO (11:13)
[2024-07-27 11:19] VITALS: BP 132/68
[2024-07-27 11:30] LABS: Glucose - Point of Care 149 mg/dl (70-99)
--- NOTE | 2024-07-27 11:44 | W.DCSUMMARY ---
Discharge Summary
Discharge Data
Date of Admission: 07/25/24
Date of Discharge: 07/27/24
-
Pending Results: Yes (Blood Cx)
Hospital Course
68yo F with PMHX of hypothyroidism, HLD, DM, rectal CA s/p RT for 4 weeks and completed chemo few days ago came with suddent onset of fever. c/o only mild dysuria, managed for UTI with neutropenia. Reached stage of BM recovery and as per ID -
appropriate to d/c on 5 days Levaquin: QTc reviewed and normal as per most recent EKG as Ucx grew mixed chung (probable contamination) and Bcx remained NTD. Medically stable for d/c home with already scheduled blood test on 07/30/24
I have spent at least 37min reviewing chart, test results, communication with consultants and providing direct patient care
Patient was managed for:
#pancytopenia 2/2 CA and chemo
#Chronic diarrhea 2/2 chemo and RT
#Fever, possible neutropenic vs UTI
#B/L groin skin desquamation 2/2 RTwound care
#Exposure to COVID-19
#Prolonged QTc
#Hypokalemia
#Hypomagnesemia
#Hypothyroidism
#HLD
#DM type 2 with unspecified complications
Discharge Plan
-
Patient Disposition: Home (Routine Discharge)
Discharge Diagnosis/Procedures: Neutropenic fever
Diet: Diabetic, Carb Controlled
Activity: No restrictions
Driving Restrictions: As prior to admission
Activity Restrictions/Additional Instructions:
Wound Care Instructions Scattered open areas to groin, buttocks and perineum- Clean gently and apply cold Hydrogel PRN
Referrals:
Alba Garner MD [Family Provider, Internal Medicine]
Prescriptions:
New
levofloxacin 750 mg Tablet
750 mg PO DAILY Qty: 4 0RF
magnesium oxide 400 mg magnesium capsule
400 mg PO DAILY Qty: 30 0RF
Continued
levothyroxine 100 MCG tablet
100 mcg PO DAILY
metformin 500 MG tablet extended release 24 hr
500 mg PO BID
Patient Comments:
will take 1000 mg am and 500 mg PM on chemo days to control glucose from Decadron effect.
pravastatin 20 mg Tablet
20 mg PO HS
ezetimibe [Zetia] 10 mg Tablet
10 mg PO DAILY
Discharge Orders:
Discharge Patient (As Directed); Ordered 07/27/24
Ordered By: Moose Roberson
Discharge Date and Time
Print Language: [place]
--- NOTE | 2024-07-27 12:13 | CM ---
Patient seen at bedside
IMM explained & signed, placed in chart
Discharge to home today
discussed VN - patient declined
PLAN: Home, declines VN
to transport
[2024-07-27] MEDS: LEVAQUIN 750 MG PO (13:57)
== END 2024-07-27 15:25 | disposition home or self-care (01) | DRG 809 ==
LOC: 3 WEST ACU 23:58
PROVIDERS: Emergency Medicine; ADMITTING PHYSICIAN Internal Medicine; ATTENDING PHYSICIAN Internal Medicine; EMERGENCY PHYSICIAN Emergency Medicine; FAMILY PHYSICIAN Internal Medicine; OTHER PHYSICIAN Internal Medicine Hematology & Oncology; OTHER PHYSICIAN Internal Medicine Infectious Disease
DX: D61.810 Antineoplastic chemotherapy induced pancytopenia (principal); D84.9 Immunodeficiency, unspecified; N39.0 Urinary tract infection, site not specified; C44.520 Squamous cell carcinoma of anal skin; D70.9 Neutropenia, unspecified; Z11.52 Encounter for screening for COVID-19; E87.6 Hypokalemia; E83.42 Hypomagnesemia; E03.9 Hypothyroidism, unspecified; E78.00 Pure hypercholesterolemia, unspecified; E11.649 Type 2 diabetes mellitus with hypoglycemia without coma; Z92.3 Personal history of irradiation; T45.1X5A Adverse effect of antineoplastic and immunosuppressive drugs, initial encounter; R50.81 Fever presenting with conditions classified elsewhere; Y84.2 Radiological procedure and radiotherapy as the cause of abnormal reaction of the patient, or of later complication, without mention of misadventure at the time of the procedure; Z20.822 Contact with and (suspected) exposure to COVID-19
CPT/HCPCS: 36415; 71046; 80048; 80053; 81003; 81015; 82962; 83036; 83605; 83735; 84443; 85025; 85027; 87040; 87070; 87086; 87324; 87449; 87502; 87811; 93005; 96365; 96375; 99285

== ENCOUNTER → 2024-07-30 14:00 | Outpatient (REF) | payer MEDICARE, OTHER, SELFPAY ==
[2024-07-30 15:05] LABS: Hematocrit 26.4 % (37.0-47.0); Hemoglobin 8.9 g/dL (12.0-16.0); Mean Corp Hgb Conc. 33.7 g/dL (33.0-37.0); Mean Corpuscular Hgb 30.7 pg (27.0-31.0); Mean Platelet Volume 10.3 fL (7.4-10.4); Platelet Count 97 10^3/uL (130-400); White Blood Cell Count 10.5 10^3/uL (4.8-10.8)
[2024-07-30 15:19] LABS: ALT (SGPT) 40 U/L (0-35); AST (SGOT) 34 U/L (14-36); Albumin 3.6 g/dl (3.5-5.0); Alkaline Phosphatase 78 U/L (38-126); Blood Urea Nitrogen 12 mg/dl (7-17); Calcium 9.4 mg/dl (8.4-10.2); Carbon Dioxide 25 mmol/L (22-30); Chloride 109 mmol/L (98-107); Glucose 109 mg/dl (70-99); Potassium 3.9 mmol/L (3.5-5.1); Sodium 140 mmol/L (135-145); Total Bilirubin 0.3 mg/dl (0.2-1.3); Total Protein 6.1 g/dl (6.3-8.2); eGFR > 60.00
[2024-07-30 16:21] LABS: Anisocytosis 1+; Macrocytosis 1+; Normal RBC Morphology No; Nucleated Red Blood Cells 1 (-); Platelets Checked Yes; Polychromasia Slight
[2024-07-30 16:23] LABS: Eosinophils 1 % (0-6); Myelocytes 6 % (-); Segmented Neutrophils 72 % (42-75); Total Cells Counted 100
[2024-07-30 16:24] LABS: Absolute Neutrophils -Man Diff 8.4 10^3/uL (1.4-6.5); Band Neutrophils 8 % (0-3); Lymphocytes 3 % (20-51); Monocytes 8 % (2-9)
[2024-07-30 16:25] LABS: Metamyelocytes 2 % (-)
== END ==
LOC: REG 14:00
PROVIDERS: ATTENDING PHYSICIAN Internal Medicine Hematology & Oncology; FAMILY PHYSICIAN Internal Medicine
DX: C50.512 Malignant neoplasm of lower-outer quadrant of left female breast (principal); E55.9 Vitamin D deficiency, unspecified; C21.0 Malignant neoplasm of anus, unspecified
CPT/HCPCS: 36415; 80053; 85025

== ENCOUNTER → 2024-08-08 10:14 | Outpatient (REF) | payer MEDICARE, OTHER, SELFPAY ==
[2024-08-08 11:18] LABS: Hematocrit 29.4 % (37.0-47.0); Hemoglobin 9.8 g/dL (12.0-16.0); Mean Corp Hgb Conc. 33.3 g/dL (33.0-37.0); Mean Corpuscular Hgb 30.9 pg (27.0-31.0); Mean Corpuscular Volume 92.7 fL (81.0-99.0); Mean Platelet Volume 8.9 fL (7.4-10.4); Platelet Count 391 10^3/uL (130-400); Red Blood Cell Count 3.17 10^6/uL (4.20-5.40); Red Cell Dist. Width 18.5 % (11.5-14.5); White Blood Cell Count 12.7 10^3/uL (4.8-10.8)
[2024-08-08 11:22] LABS: Absolute Neutrophils -Man Diff 10.4 10^3/uL (1.4-6.5); Band Neutrophils 16 % (0-3); Eosinophils 1 % (0-6); Lymphocytes 5 % (20-51); Metamyelocytes 4 % (-); Monocytes 6 % (2-9); Myelocytes 2 % (-); Segmented Neutrophils 66 % (42-75)
[2024-08-08 11:23] LABS: Platelets Checked Yes
[2024-08-08 11:24] LABS: Normal RBC Morphology Yes
[2024-08-08 11:25] LABS: Total Cells Counted 100
[2024-08-08 11:28] LABS: ALT (SGPT) 32 U/L (0-35); AST (SGOT) 27 U/L (14-36); Albumin 3.8 g/dl (3.5-5.0); Alkaline Phosphatase 75 U/L (38-126); Blood Urea Nitrogen 16 mg/dl (7-17); Calcium 9.3 mg/dl (8.4-10.2); Carbon Dioxide 25 mmol/L (22-30); Chloride 108 mmol/L (98-107); Glucose 129 mg/dl (70-99); Potassium 4.2 mmol/L (3.5-5.1); Sodium 141 mmol/L (135-145); Total Bilirubin 0.3 mg/dl (0.2-1.3); Total Protein 6.5 g/dl (6.3-8.2); eGFR > 60.00
== END ==
LOC: REG 10:14
PROVIDERS: ATTENDING PHYSICIAN Internal Medicine Hematology & Oncology; FAMILY PHYSICIAN Internal Medicine
DX: C50.512 Malignant neoplasm of lower-outer quadrant of left female breast (principal); E55.9 Vitamin D deficiency, unspecified; C21.0 Malignant neoplasm of anus, unspecified
CPT/HCPCS: 36415; 80053; 85025

== ENCOUNTER → 2024-08-22 12:35 | Outpatient (REF) | payer MEDICARE, OTHER, SELFPAY ==
[2024-08-22 12:48] VITALS: BP 127/74; BP_SYST 89
== END ==
LOC: RADI 12:35
PROVIDERS: ATTENDING PHYSICIAN Internal Medicine Hematology & Oncology; FAMILY PHYSICIAN Internal Medicine
DX: Z45.2 Encounter for adjustment and management of vascular access device (principal); C21.0 Malignant neoplasm of anus, unspecified
CPT/HCPCS: 36590; 77001

== ENCOUNTER → 2024-09-13 07:37 | Outpatient (REF) | payer MEDICARE, OTHER, SELFPAY ==
[2024-09-13 08:53] LABS: Hematocrit 36.8 % (37.0-47.0); Hemoglobin 11.7 g/dL (12.0-16.0); Mean Corp Hgb Conc. 31.8 g/dL (33.0-37.0); Mean Corpuscular Volume 95.8 fL (81.0-99.0); Nucleated Red Blood Cells % 0 %; Red Cell Dist. Width 15.2 % (11.5-14.5)
[2024-09-13 09:44] LABS: Glycohemoglobin (HgbA1c) 5.5 % (4.0-5.6)
[2024-09-13 10:06] LABS: Microalbumin, Random Urine 2.7 mg/dl (0.6-1.7)
[2024-09-13 10:14] LABS: Microalb - Urine Creatinine 45.200 mg/dl
[2024-09-13 10:29] LABS: ALT (SGPT) 29 U/L (0-35); AST (SGOT) 30 U/L (14-36); Albumin 4.3 g/dl (3.5-5.0); Alkaline Phosphatase 47 U/L (38-126); Blood Urea Nitrogen 16 mg/dl (7-17); Calcium 9.5 mg/dl (8.4-10.2); Carbon Dioxide 26 mmol/L (22-30); Chloride 107 mmol/L (98-107); Glucose 91 mg/dl (70-99); HDL Cholesterol 49 mg/dl; LDL Cholesterol, Calculated 91 mg/dl; Potassium 4.7 mmol/L (3.5-5.1); Sodium 140 mmol/L (135-145); Total Protein 7.3 g/dl (6.3-8.2); Very Low Density Lipoprotein 49 mg/dl (0-30); eGFR > 60.00
== END ==
LOC: REG 07:37
PROVIDERS: ATTENDING PHYSICIAN Internal Medicine
DX: E11.9 Type 2 diabetes mellitus without complications (principal); E03.9 Hypothyroidism, unspecified; E78.2 Mixed hyperlipidemia
CPT/HCPCS: 36415; 80053; 80061; 82043; 82570; 83036; 84443; 85025

== ENCOUNTER → 2024-12-24 07:51 | Outpatient (REF) | payer MEDICARE, OTHER, SELFPAY | LOC: WDC 07:51 | PROVIDERS: ATTENDING PHYSICIAN Internal Medicine | DX: Z78.0 Asymptomatic menopausal state (principal); Z12.31 Encounter for screening mammogram for malignant neoplasm of breast; Z12.39 Encounter for other screening for malignant neoplasm of breast | CPT/HCPCS: 77063; 77067; 77080 ==

== ENCOUNTER → 2024-12-25 06:43 | Outpatient (REF) | payer MEDICARE, OTHER, SELFPAY ==
[2024-12-25 07:34] LABS: Hematocrit 41.0 % (37.0-47.0); Hemoglobin 13.3 g/dL (12.0-16.0); Mean Corp Hgb Conc. 32.4 g/dL (33.0-37.0); Mean Corpuscular Volume 88.6 fL (81.0-99.0); Nucleated Red Blood Cells % 0 %; Platelet Count 312 10^3/uL (130-400); Red Cell Dist. Width 14.1 % (11.5-14.5)
[2024-12-25 07:59] LABS: ALT (SGPT) 20 U/L (0-35); AST (SGOT) 19 U/L (14-36); Albumin 4.2 g/dl (3.5-5.0); Alkaline Phosphatase 52 U/L (38-126); Blood Urea Nitrogen 15 mg/dl (7-17); Calcium 9.7 mg/dl (8.4-10.2); Carbon Dioxide 30 mmol/L (22-30); Chloride 105 mmol/L (98-107); Glucose 92 mg/dl (70-99); HDL Cholesterol 48 mg/dl; LDL Cholesterol, Calculated 90 mg/dl; Potassium 4.8 mmol/L (3.5-5.1); Sodium 142 mmol/L (135-145); Total Protein 7.2 g/dl (6.3-8.2); Very Low Density Lipoprotein 54 mg/dl (0-30); eGFR > 60.00
[2024-12-25 08:51] LABS: Glycohemoglobin (HgbA1c) 6.4 % (4.0-5.9)
== END ==
LOC: REG 06:43
PROVIDERS: ATTENDING PHYSICIAN Internal Medicine; REFERRING PHYSICIAN Internal Medicine Hematology & Oncology
DX: E11.9 Type 2 diabetes mellitus without complications (principal); E78.2 Mixed hyperlipidemia; E03.9 Hypothyroidism, unspecified; D64.9 Anemia, unspecified
CPT/HCPCS: 36415; 80053; 80061; 83036; 84443; 85025